=== PATIENT | male | born 1950 | race Caucasian/White ===

== ENCOUNTER 2020-10-28 06:44 | Outpatient (REF) | payer MEDICARE, SELFPAY ==
--- NOTE | ~2020-10-28 | CT_ITS ---
EXAMINATION: CT CHEST WITHOUT CONTRAST CLINICAL INFORMATION: Abnormal findings of lung field COMPARISON: CT chest from 01/30/2018 TECHNIQUE: Multidetector volumetric CT imaging of the chest was done. Axial MIP volume rendering provided. Sagittal and coronal reformatted images were obtained. This CT examination was performed using dose optimization techniques as appropriate, variously including the following: *Automated exposure control *Adjustment of mA and/or kV according to patient size (this includes techniques or standardized protocols for targeted exams where dose is matched to indication/reason for exam; i.e. extremities or head) *Use of iterative reconstruction technique DLP: 244.3 mGy-cm FINDINGS: LUNGS/PLEURA: Redemonstration of innumerable calcified and noncalcified bilateral pulmonary nodules are relatively stable in size and distribution. No new suspicious large pulmonary nodule is identified. Mild bibasilar atelectasis. Central airways are patent. No pneumothorax. No pleural effusion. MEDIASTINUM: The heart is not enlarged. No pericardial effusion. Aorta is nonaneurysmal and demonstrates mild atherosclerotic calcifications. The main pulmonary artery is not enlarged. Redemonstration of mildly prominent though nonenlarged mediastinal lymph nodes the largest appearing in the right paratracheal region measuring up to 1.3 cm. AXILLA: No lymphadenopathy. UPPER ABDOMEN: Unremarkable. OSSEOUS STRUCTURES: Degenerative changes of the thoracolumbar spine with anterior bridging osteophytes. No large lytic or blastic lesions are noted. CT/CT chest wo con IMPRESSION: 1. Redemonstration of innumerable calcified and noncalcified bilateral pulmonary nodules relatively stable in size and distribution. 2. No new suspicious large pulmonary nodule is identified. 3. Redemonstration of mildly prominent though nonenlarged mediastinal lymph nodes the largest appearing in the right paratracheal region measuring up to 1.3 cm.
[2020-10-28 11:49] LABS: Appearance Urine CLEAR; Color Urine YELLOW; Glucose Urine UA NEG (NEG); Leukocyte Esterase Urine NEG (NEG); Nitrite Urine NEG (NEG); Specific Gravity - Urine 1.025 (1.005-1.025); Urine Blood NEG (NEG); Urine Ketones 5 MG/DL (NEG); Urine Protein NEG (NEG-TRACE)
[2020-10-28 12:11] LABS: TSH reflex Free T4 1.04 uIU/mL (0.32-4.0)
[2020-10-28 12:30] LABS: Alanine Aminotransferase 30 U/L (0-40); Albumin Level 4.1 g/dL (3.5-5.0); Alkaline Phosphatase 83 U/L (39-117); Anion Gap 15 (12-20); Aspartate Amino Transferase 21 U/L (5-37); Bilirubin Total 0.6 mg/dL (0.0-1.0); Blood Urea Nitrogen 18 mg/dL (9-16); Calcium 8.8 mg/dL (8.4-10.2); Carbon Dioxide 21 mmol/L (22-29); Chloride 107 mmol/L (96-108); Cholesterol 169 mg/dL; Estimated Glomerular Filt Rate > 60; Glucose Fasting 120 mg/dL (60-99); HDL Cholesterol 38 mg/dL; LDL Cholesterol Calculated 82 mg/dl; Potassium 4.3 mmol/L (3.3-5.1); Sodium 139 mmol/L (135-145); Total Protein 6.8 g/dL (6.5-8.0); Triglycerides 246 mg/dL
[2020-10-28 13:03] LABS: Prostate Specific Antigen Scr 2.19 ng/mL (<0.05-4.0)
== END 2020-10-28 06:45 | disposition home or self-care (01) ==
LOC: HO.CT 06:44
PROVIDERS: PCP Nurse Practitioner Family; Visit Provider Nurse Practitioner Family
DX: Z00.00 Encounter for general adult medical examination without abnormal findings (principal); Z12.5 Encounter for screening for malignant neoplasm of prostate; R91.8 Other nonspecific abnormal finding of lung field
CPT/HCPCS: 36415; 71250; 80053; 80061; 81003; 84153; 84443

== ENCOUNTER 2021-04-08 06:31 | Outpatient (REF) | payer MEDICARE, SELFPAY ==
[2021-04-08 11:28] LABS: Alanine Aminotransferase 29 U/L (0-40); Alkaline Phosphatase 74 U/L (39-117); Anion Gap 15 (12-20); Aspartate Amino Transferase 23 U/L (5-37); Bilirubin Total 0.8 mg/dL (0.0-1.0); Blood Urea Nitrogen 22 mg/dL (9-16); Calcium 9.2 mg/dL (8.4-10.2); Carbon Dioxide 25 mmol/L (22-29); Chloride 106 mmol/L (96-108); Cholesterol 165 mg/dL; Estimated Glomerular Filt Rate > 60; Glucose Fasting 124 mg/dL (60-99); HDL Cholesterol 41 mg/dL; LDL Cholesterol Calculated 102 mg/dl; Potassium 4.6 mmol/L (3.3-5.1); Sodium 141 mmol/L (135-145); Total Protein 6.7 g/dL (6.5-8.0); Triglycerides 114 mg/dL
[2021-04-08 11:31] LABS: Appearance Urine CLEAR; Color Urine YELLOW; Glucose Urine UA NEG (NEG); Leukocyte Esterase Urine NEG (NEG); Nitrite Urine NEG (NEG); Urine Blood NEG (NEG); Urine Ketones NEG (NEG); Urine Protein NEG (NEG-TRACE)
[2021-04-08 11:52] LABS: TSH reflex Free T4 0.75 uIU/mL (0.32-4.0)
== END 2021-04-08 06:32 | disposition home or self-care (01) ==
LOC: HO.HMGCLDS 06:31
PROVIDERS: PCP Nurse Practitioner Family; Visit Provider Nurse Practitioner Family
DX: I10 Essential (primary) hypertension (principal)
CPT/HCPCS: 36415; 80053; 80061; 81003; 84443

== ENCOUNTER 2021-04-21 08:20 | Outpatient (REF) | payer MEDICARE, SELFPAY ==
[2021-04-21 12:32] LABS: Alanine Aminotransferase 27 U/L (0-40); Albumin Level 4.2 g/dL (3.5-5.0); Alkaline Phosphatase 78 U/L (39-117); Anion Gap 14 (12-20); Aspartate Amino Transferase 21 U/L (5-37); Bilirubin Total 0.6 mg/dL (0.0-1.0); Blood Urea Nitrogen 14 mg/dL (9-16); Calcium 9.1 mg/dL (8.4-10.2); Carbon Dioxide 26 mmol/L (22-29); Chloride 106 mmol/L (96-108); Estimated Glomerular Filt Rate > 60; Glucose Random 121 mg/dL (60-115); Potassium 4.6 mmol/L (3.3-5.1); Sodium 141 mmol/L (135-145)
[2021-04-21 12:37] LABS: Estimated Average Glucose 108 mg/dL; Hemoglobin A1c % 5.4 %
== END 2021-04-21 08:21 | disposition home or self-care (01) ==
LOC: HO.HMGCLDS 08:20
PROVIDERS: Visit Provider Nurse Practitioner Family
DX: R73.01 Impaired fasting glucose (principal)
CPT/HCPCS: 36415; 80053; 83036

== ENCOUNTER → 2021-07-19 14:19 | Outpatient (BNVA) | payer MEDICARE, SELFPAY | PROVIDERS: PCP Nurse Practitioner Family; Visit Provider Urology | DX: R97.20 Elevated prostate specific antigen [PSA] (principal); N40.1 Benign prostatic hyperplasia with lower urinary tract symptoms; N13.8 Other obstructive and reflux uropathy | CPT/HCPCS: 99202 ==

== ENCOUNTER → 2021-12-19 09:41 | Outpatient (BNVA) | payer MEDICARE, SELFPAY | PROVIDERS: PCP Nurse Practitioner Family; Visit Provider Hospitalist | DX: D86.9 Sarcoidosis, unspecified (principal); R59.0 Localized enlarged lymph nodes; R91.8 Other nonspecific abnormal finding of lung field | CPT/HCPCS: 99202 ==

== ENCOUNTER 2022-01-02 07:52 | Outpatient (REF) | payer MEDICARE, SELFPAY ==
--- NOTE | ~2022-01-02 | CT_ITS ---
EXAMINATION: CT CHEST WITHOUT CONTRAST CLINICAL INFORMATION: Abnormal lung findings. COMPARISON: CT chest 10/28/2020 and 01/30/2018 TECHNIQUE: Multidetector volumetric CT imaging of the chest was done. Axial MIP volume rendering provided. Sagittal and coronal reformatted images were obtained. This CT examination was performed using dose optimization techniques as appropriate, variously including the following: *Automated exposure control *Adjustment of mA and/or kV according to patient size (this includes techniques or standardized protocols for targeted exams where dose is matched to indication/reason for exam; i.e. extremities or head) *Use of iterative reconstruction technique DLP: 249 mGy-cm FINDINGS: WAGE AND SALARY ADMINISTRATOR: Unremarkable radiator core tester. LUNGS: The lungs are well-expanded and clear. Again visualized are multiple calcified and noncalcified pulmonary nodules. No acute pneumonic consolidation, mass seen. MEDIASTINUM: The thyroid lobes are symmetric and normal. The central trachea and the bronchi are widely patent. The heart size and the great vessels are normal caliber. There are numerous small shotty lymph nodes in the mediastinum. The largest lymph node measures 9 mm pretracheal space on axial image 15/3. CORONARY ARTERY CALCIFICATION: Minimal coronary artery calcification seen. PLEURA: There is no pleural effusion. No pleural mass or thickening. AXILLA: Unremarkable axilla. UPPER ABDOMEN: Visualized liver is diffusely attenuated without any focal lesion. Spleen, pancreas and bilateral adrenal glands and the gallbladder appear unremarkable. OSSEOUS STRUCTURES: Diffuse sclerotic densities are seen in the left ribs which appear stable to last exam. Mild ventral spondylosis seen throughout dorsal spine. CT/CT chest wo IV con IMPRESSION: 1. Multiple calcified and noncalcified pulmonary nodules are stable. No new nodules seen. No new suspicious nodules seen. 2. Slightly prominent numerous mediastinal lymph nodes are stable. Fleischner guidelines were followed.
== END 2022-01-02 07:53 | disposition home or self-care (01) ==
LOC: HO.CT 07:52
PROVIDERS: PCP Nurse Practitioner Family; Visit Provider Hospitalist
DX: R91.8 Other nonspecific abnormal finding of lung field (principal)
CPT/HCPCS: 71250

== ENCOUNTER 2022-01-16 07:50 | Outpatient (REF) | payer MEDICARE, SELFPAY ==
--- NOTE | 2022-01-16 14:47 | PFT_ITS ---
Forced vital capacity 91%, FEV1 92%. LHG19-36 is 88% and MVV 102%. Post bronchodilator therapy there is only slight improvement in AGQ54-41. Total lung capacity 87% and residual volume 82%. Diffusion capacity 72% CONCLUSION: Normal pulmonary function test. No evidence of obstructive or restrictive pulmonary disorder. Clinical correlation is recommended. MD CADY Nelson/SIN / [id number]
== END 2022-01-16 07:51 | disposition home or self-care (01) ==
LOC: HO.RESP 07:50
PROVIDERS: PCP Nurse Practitioner Family; Visit Provider Hospitalist
DX: R91.8 Other nonspecific abnormal finding of lung field (principal)
CPT/HCPCS: 94060; 94727; 94729

== ENCOUNTER 2022-01-22 06:57 | Outpatient (REF) | payer MEDICARE, SELFPAY ==
[2022-01-22 07:08] LABS: MANUAL DIFF FLAG NO
[2022-01-22 07:43] LABS: Basophils Percent Auto 0.7 % (0-2); Eosinophils Absolute Auto 0.4 X10*3/uL (0.0-0.4); Eosinophils Percent Auto 6.1 % (0-4); Hematocrit 44.5 % (42.0-52.0); Hemoglobin 15.3 g/dl (14.0-18.0); Imm Gran Abs Auto 0.01 X10*3/uL (0.00-0.03); Imm Gran Pct Auto 0.2 % (0.0-0.4); Lymphocytes Absolute Auto 2.2 X10*3/uL (1.2-4.9); Lymphocytes Percent Auto 36.6 % (20-40); Mean Corpuscular HGB Conc 34.4 g/dl (31.0-36.0); Mean Corpuscular Hemoglobin 31.1 pg (27.0-33.0); Mean Corpuscular Volume 90.4 fL (80.0-98.0); Mean Platelet Volume 10.4 fL (9.4-12.4); Monocytes Absolute Auto 0.6 X10*3/uL (0.1-1.2); Monocytes Percent Auto 10.3 % (2-11); Neutrophils Absolute Auto 2.8 x10*3/uL (2.0-8.3); Neutrophils Percent Auto 46.1 % (45-73); Platelet Count 185 X10*3/uL (160-400); Red Blood Count 4.92 X10*6/uL (4.60-5.80); Red Cell Distribution Width 12.6 % (11.0-16.0); White Blood Count 6.1 X10*3/uL (4.8-10.8)
[2022-01-22 08:38] LABS: Alanine Aminotransferase 30 U/L (0-40); Albumin Level 4.2 g/dL (3.5-5.0); Alkaline Phosphatase 76 U/L (39-117); Anion Gap 13 (12-20); Aspartate Amino Transferase 22 U/L (5-37); Bilirubin Direct 0.2 mg/dL (0.0-0.5); Bilirubin Total 0.5 mg/dL (0.0-1.0); Blood Urea Nitrogen 14 mg/dL (9-16); Carbon Dioxide 26 mmol/L (22-29); Chloride 105 mmol/L (96-108); Estimated Glomerular Filt Rate > 60; Glucose Random 115 mg/dL (60-115); PSA,Total (Free>4and<10) 0.67 ng/mL (0.00-4.00); Potassium 4.5 mmol/L (3.3-5.1); Sodium 139 mmol/L (135-145); Total Protein 6.9 g/dL (6.5-8.0)
[2022-01-22 09:02] LABS: Erythrocyte Sedimentation Rate 2 MM/HR (0-15)
[2022-01-28 18:43] LABS: Angiotensin Converting Enzyme 67.6 U/L (9-67)
== END 2022-01-22 06:58 | disposition home or self-care (01) ==
LOC: HO.LAB 06:57
PROVIDERS: Hospitalist; Urology; PCP Nurse Practitioner Family; Visit Provider Nurse Practitioner Family
DX: Z12.5 Encounter for screening for malignant neoplasm of prostate (principal); N13.8 Other obstructive and reflux uropathy; N40.1 Benign prostatic hyperplasia with lower urinary tract symptoms; R59.0 Localized enlarged lymph nodes; D86.9 Sarcoidosis, unspecified
CPT/HCPCS: 36415; 80048; 80076; 82164; 84153; 85025; 85652

== ENCOUNTER → 2022-01-24 08:18 | Outpatient (BNVA) | payer MEDICARE, SELFPAY | PROVIDERS: PCP Nurse Practitioner Family; Visit Provider Urology | DX: R97.20 Elevated prostate specific antigen [PSA] (principal) | CPT/HCPCS: 99212 ==

== ENCOUNTER → 2022-02-21 09:14 | Outpatient (BNVA) | payer MEDICARE, SELFPAY | PROVIDERS: PCP Nurse Practitioner Family; Visit Provider Hospitalist | DX: R91.8 Other nonspecific abnormal finding of lung field (principal); D86.9 Sarcoidosis, unspecified; R59.0 Localized enlarged lymph nodes | CPT/HCPCS: 99212 ==

== ENCOUNTER 2022-04-13 07:11 | Outpatient (REF) | payer MEDICARE, SELFPAY ==
[2022-04-13 11:26] LABS: MANUAL DIFF FLAG NO
[2022-04-13 11:38] LABS: Basophils Percent Auto 0.6 % (0-2); Eosinophils Absolute Auto 0.3 X10*3/uL (0.0-0.4); Eosinophils Percent Auto 5.3 % (0-4); Hematocrit 44.8 % (42.0-52.0); Hemoglobin 15.6 g/dl (14.0-18.0); Imm Gran Abs Auto 0.01 X10*3/uL (0.00-0.03); Imm Gran Pct Auto 0.2 % (0.0-0.4); Lymphocytes Absolute Auto 1.9 X10*3/uL (1.2-4.9); Lymphocytes Percent Auto 38.3 % (20-40); Mean Corpuscular HGB Conc 34.8 g/dl (31.0-36.0); Mean Corpuscular Volume 89.1 fL (80.0-98.0); Mean Platelet Volume 10.4 fL (9.4-12.4); Monocytes Absolute Auto 0.5 X10*3/uL (0.1-1.2); Monocytes Percent Auto 9.4 % (2-11); Neutrophils Absolute Auto 2.3 x10*3/uL (2.0-8.3); Neutrophils Percent Auto 46.2 % (45-73); Platelet Count 187 X10*3/uL (160-400); Red Blood Count 5.03 X10*6/uL (4.60-5.80); Red Cell Distribution Width 12.2 % (11.0-16.0); White Blood Count 4.9 X10*3/uL (4.8-10.8)
[2022-04-13 11:49] LABS: Appearance Urine Turbid; Color Urine Yellow; Glucose Urine UA Negative (Negative); Leukocyte Esterase Urine Negative (Negative); Nitrite Urine Negative (Negative); PH 5.5 (5.0-9.0); Specific Gravity - Urine 1.025 (1.005-1.025); Urine Blood Negative (Negative); Urine Ketones Trace mg/dL (Negative); Urine Protein Negative (Neg-Trace)
[2022-04-13 11:55] LABS: Alanine Aminotransferase 74 U/L (0-40); Alkaline Phosphatase 78 U/L (39-117); Anion Gap 15 (12-20); Aspartate Amino Transferase 48 U/L (5-37); Bilirubin Total 0.5 mg/dL (0.0-1.0); Blood Urea Nitrogen 14 mg/dL (9-16); Calcium 8.3 mg/dL (8.4-10.2); Carbon Dioxide 22 mmol/L (22-29); Chloride 108 mmol/L (96-108); Cholesterol 125 mg/dL; Estimated Glomerular Filt Rate > 60; Glucose Fasting 112 mg/dL (60-99); HDL Cholesterol 25 mg/dL; LDL Cholesterol Calculated 48 mg/dl; Sodium 141 mmol/L (135-145); Total Protein 6.5 g/dL (6.5-8.0); Triglycerides 261 mg/dL
[2022-04-13 12:10] LABS: TSH reflex Free T4 1.47 uIU/mL (0.32-4.0)
== END 2022-04-13 07:12 | disposition home or self-care (01) ==
LOC: HO.HMGCLDS 07:11
PROVIDERS: PCP Nurse Practitioner Family; Visit Provider Nurse Practitioner Family
DX: I10 Essential (primary) hypertension (principal)
CPT/HCPCS: 36415; 80053; 80061; 81003; 84443; 85025

== ENCOUNTER 2022-04-19 08:09 | Outpatient (REF) | payer MEDICARE, SELFPAY ==
--- NOTE | ~2022-04-19 | US_ITS ---
EXAMINATION: US ABDOMEN COMPLETE CLINICAL INFORMATION: Abnormal levels of other serum enzymes. COMPARISON: None TECHNIQUE: Real-time imaging of the abdominal viscera. Technically limited study secondary to body habitus. FINDINGS: PANCREAS: Normal. ABDOMINAL AORTA: The proximal, mid, and distal segments are normal in caliber. INFERIOR VENA CAVA: Visualized portions are normal. LIVER: The liver is normal in size. The liver contour is normal. There is diffuse increased liver parenchymal echogenicity, consistent with hepatic steatosis. No focal hepatic lesion. There is no intrahepatic biliary duct dilatation seen. GALLBLADDER: Normal. The gallbladder is physiologically distended without evidence of stones, sludge, polyps, wall thickening or pericholecystic fluid. COMMON BILE DUCT: Normal in caliber measuring 0.3 cm in diameter. RIGHT KIDNEY: Benign-appearing 1.1 cm cyst. Followup imaging is not routinely recommended for benign appearing cysts. No hydronephrosis or renal calculi. The kidney measures 12.6 cm in maximum dimension. LEFT KIDNEY: Normal. No hydronephrosis. No renal calculi or focal parenchymal lesions. The kidney measures 13.2 cm in maximum dimension. SPLEEN: Normal. The spleen measures 11.1 cm in maximum dimension. FREE FLUID: None. US/US abdomen complete IMPRESSION: Hepatic steatosis.
== END 2022-04-19 08:10 | disposition home or self-care (01) ==
LOC: HO.US 08:09
PROVIDERS: PCP Nurse Practitioner Family; Visit Provider Nurse Practitioner Family
DX: R74.8 Abnormal levels of other serum enzymes (principal); R74.01 Elevation of levels of liver transaminase levels
CPT/HCPCS: 76700

== ENCOUNTER 2022-07-19 06:57 | Outpatient (REF) | payer MEDICARE, SELFPAY ==
[2022-07-20 08:14] LABS: HBS Num1 0.35 mIU/mL (0-7.99); HBc Num1 0.11 S/CO (0.00-0.79); HBsAGNum1 0.34 S/CO (0.00-0.99); Hepatitis A Antibody IgM 0.17 Index (0-0.79); Hepatitis B Core Antibody Nonreactive (Nonreactive); Hepatitis B Surface Antigen Negative (Negative); ~HepC Num1 0.09 S/CO (0.00-0.79); ~Hepatitis A Antibody IgM Nonreactive (Nonreactive); ~Hepatitis B Surface Antibody NONREACTIVE (Nonreactive); ~Hepatitis C Antibody Nonreactive (Nonreactive)
== END 2022-07-19 06:58 | disposition home or self-care (01) ==
LOC: HO.HMGCLDS 06:57
PROVIDERS: PCP Nurse Practitioner Family; Visit Provider Nurse Practitioner Family
DX: R74.8 Abnormal levels of other serum enzymes (principal)
CPT/HCPCS: 36415; 86704; 86706; 86709; 86803; 87340

== ENCOUNTER 2022-08-17 07:24 | Outpatient (REF) | payer MEDICARE, SELFPAY ==
[2022-08-17 11:33] LABS: Appearance Urine Clear; Color Urine Yellow; Glucose Urine UA Negative (Negative); Leukocyte Esterase Urine Negative (Negative); Nitrite Urine Negative (Negative); PH 5.5 (5.0-9.0); Urine Blood Negative (Negative); Urine Ketones Trace mg/dL (Negative); Urine Protein Negative (Neg-Trace)
[2022-08-17 12:40] LABS: Alanine Aminotransferase 24 U/L (0-40); Albumin Level 4.1 g/dL (3.5-5.0); Alkaline Phosphatase 79 U/L (39-117); Anion Gap 13 (12-20); Aspartate Amino Transferase 22 U/L (5-37); Bilirubin Total 0.5 mg/dL (0.0-1.0); Blood Urea Nitrogen 19 mg/dL (9-16); Calcium 9.1 mg/dL (8.4-10.2); Carbon Dioxide 24 mmol/L (22-29); Chloride 108 mmol/L (96-108); Cholesterol 149 mg/dL; Estimated Glomerular Filt Rate > 60; Glucose Fasting 112 mg/dL (60-99); HDL Cholesterol 36 mg/dL; LDL Cholesterol Calculated 79 mg/dl; Potassium 4.3 mmol/L (3.3-5.1); Sodium 141 mmol/L (135-145); Total Protein 7.1 g/dL (6.5-8.0); Triglycerides 170 mg/dL
[2022-08-17 12:45] LABS: TSH reflex Free T4 0.12 uIU/mL (0.32-4.0)
[2022-08-17 13:16] LABS: Free T4 (Free Thyroxine) 1.31 ng/dL (0.71-1.85)
== END 2022-08-17 07:25 | disposition home or self-care (01) ==
LOC: HO.HMGCLDS 07:24
PROVIDERS: PCP Nurse Practitioner Family; Visit Provider Nurse Practitioner Family
DX: I10 Essential (primary) hypertension (principal)
CPT/HCPCS: 36415; 80053; 80061; 81003; 84439; 84443; 85025

== ENCOUNTER 2022-08-29 09:07 | Outpatient (AMB) | payer MEDICARE, SELFPAY ==
--- NOTE | 2022-08-29 09:26 | A.OFFVIS_ITS ---
Intake Vital Signs 08/29/22 09:27 Height 6 ft 1 in Weight 236 lb BMI 31.1 BP 130/70 Blood Pressure Location Lt brachial Position Standing Pulse 64 Pulse Source Pulse Oximeter Pulse Oximetry (%) 97 Oxygen Delivery Method Room Air Intake Visit Reasons: Pulmonary Nodules Intake Note: pt is here for follow up and states he is feeling good. Allergies No Known Allergies [No Known Allergies*] Allergy (Verified 08/29/22 09:30) HPI HPI Comments History of Present Illness Details The patient is a 72-year-old gentleman with a known history of pulmonary nodules. Back in 2017 the patient was noted to have the pulmonary nodules in addition to lymphadenopathy. He did undergo a bronchoscopy demonstrating just reactive inflammatory changes. Subsequently in 2018 underwent a mediastinoscopy biopsy of the 4R lymph node. This demonstrated granulomas which were non necrotizing. fungal and AFB stains were negative. And also the cultures from previous bronchoscopy were negative for any infectious processes. This brings up the possibility of sarcoidosis. The patient subsequently had a repeat CT scan of the chest in October 2020 demonstrating multiple pulmonary nodules in addition to persistent adenopathy. From a respiratory status the patient continues to have some degree of cough. He also has shortness of breath with activity at times. He does not having any others. Patient denies any rashes denies any eye or visual changes. At this point does not appear to have any extra pulmonary manifestations of sarcoidosis. In regards of his obstructive sleep apnea the patient has been on CPAP for many years. 02/21/2022 the patient is here for a pulmonary follow-up visit. Overall the patient is doing well. He does describe episodes of coughing and chest tight ness. Typically between 3 to 4 times a week. He is not using any inhalers at this time. We did review his pulmonary function studies which demonstrated just an isolated diffusion impairment. This was mild. Possibly some small airways disease but not significant. The patient also had blood work demonstrating some elevations in his eosinophils suggesting potential allergies. He also had a sli ght elevation of the Jose Cruz level suggesting sarcoid activity. The rest of the blood work was benign therefore no liver or kidney involvement. His calcium levels are within normal limits. He recently had his eyes checked and no mention of sarcoid was noted. The patient overall is doing well. He did have a repeat CT scan of the chest that was personally by me. It appears that the nodules and the lymphadenopathy is stable at this time. Will go ahead and start him on inhaled cortical steroid/albuterol inhaler that he can use initially as needed during his episodes. If he sees that he is using it often and he sees that he is getting good response to the therapy then he can start using it on a daily basis in the morning. He should also rinse his mouth after using it. Will follow-up in 6 months but will follow-up with a repeat CT scan in a year's time. 08/29/2022 the patient is here for pulmonary follow-up visit. Overall patient very well. He lost about 20 lb with weight management. He also stopped using Symbicort daily since he has been doing better. He can always use it as needed. The patient did have a pulmonary function study back in January 2022 which we reviewed again demonstrating on no with definitive obstructive ventilatory defects although some slight small airways disease. The patient also had a mild diffusion impairment. His last CT scan was back in December 2021 that was compared to a previous CT scan from 2018. His pulmonary nodules appear to be stable although slightly increased prominence in the lymphadenopathy. Will plan to repeat the CT scan in a year's time since he is doing so well. If he develops any worsening symptoms prior to that will any other concerning issues she can always call so we can reassess earlier. [facility] Medical History Sarcoidosis Family History Father Mental health disorder Social History Housing: House Patient Tobacco Use Status: Never used Tobacco e-Cigarette/Vaping Use: Never Used Second Hand Smoke Exposure: No service: No Current occupational status: employed Current occupation: [employer] Current occupational exposures/hazards: No Cognitive needs: No Hearing needs: No Vision needs: No Review of Systems Const Denies fatigue, Denies fever(s) and Denies night sweats Eyes Denies change in vision and Denies itchy eyes ENT Denies change in voice Card Denies chest pain and Denies dyspnea on exertion Resp Reports cough and Denies dyspnea on exertion GI Reports no additional complaints Musc Reports arthralgias Skin/Breast Denies rash Neuro Reports no additional complaints Endo Denies fatigue and Denies flushing Sheldon/Lymph Denies easy bleeding and Denies easy bruising Aller/Immun Denies itchy eyes Physical Exam Vital Signs: Last Vital Signs Pulse 64 08/29/22 09:27 BP 130/70 08/29/22 09:27 Pulse Ox 97 08/29/22 09:27 Oxygen Delivery Method Room Air 08/29/22 09:27 BMI result Body Mass Index 31.1 Const General: cooperative, healthy appearing, comfortable and no acute distress Orientation/consciousness: patient oriented x3 HEENT Head: Yes normal to inspection Face and sinus: Yes normal facial exam Mouth: moist mucous membranes Neck Neck: Yes normal visual inspection, Yes full ROM and Yes trachea midline Chest Chest palpation & inspection: normal inspection of the chest Resp Effort & Inspection: normal respiratory effort and able to speak in complete sentences Auscultation: clear to auscultation bilaterally Cardio Rate: regular rate Rhythm: regular rhythm Heart sounds: S1 normal heart sound present and S2 normal heart sound present GI Palpation (GI): Soft to palpation Auscultation: normal bowel sounds Skin General skin exam: no rashes or lesions noted Neuro General: patient oriented x3, gait normal, tone normal and moves all extremities Extrem General: Yes no clubbing, cyanosis or edema Assessment & Plan Assessment & Plan (1) Sarcoidosis: Code(s): D86.9 - Sarcoidosis, unspecified (2) Mediastinal lymphadenopathy: Code(s): R59.0 - Localized enlarged lymph nodes (3) Pulmonary nodules: Code(s): R91.8 - Other nonspecific abnormal finding of lung field Plan Repeat CT chest in 1 year continue Symbicort as needed F/U 1 months Coding Level of Care Code Est Pt Level 4 (41507) Diagnoses Sarcoidosis D86.9 Mediastinal lymphadenopathy R59.0 Pulmonary nodules R91.8 Time Spent (min) 18
[2022-08-29 09:27] VITALS: BP 130/70; PULSE 64; O2SAT 97; BMI 31.1
== END 2022-08-29 09:42 | disposition home or self-care (01) ==
PROVIDERS: PCP Nurse Practitioner Family; Visit Provider Hospitalist
DX: D86.9 Sarcoidosis, unspecified (principal); R59.0 Localized enlarged lymph nodes; R91.8 Other nonspecific abnormal finding of lung field
CPT/HCPCS: 99214

== ENCOUNTER → 2022-08-29 09:07 | Outpatient (BNVA) | payer MEDICARE, SELFPAY | PROVIDERS: Visit Provider Hospitalist | DX: R91.8 Other nonspecific abnormal finding of lung field (principal); D86.9 Sarcoidosis, unspecified; R59.0 Localized enlarged lymph nodes | CPT/HCPCS: 99212 ==

== ENCOUNTER → 2022-09-04 08:33 | Outpatient (REF) | payer MEDICARE, SELFPAY ==
--- NOTE | ~2022-09-04 | NM_ITS ---
EXERCISE MYOCARDIAL PERFUSION STUDY INDICATION: Chest pain, assess for coronary disease ischemia TECHNIQUE: The patient was brought in for an exercise perfusion study on 09/04/2022. Patient performed exercise as per Rtemayne protocol and was injected 35 mCi of sestamibi once target heart rate was achieved. Images were obtained using the SPECT gamma camera interlaced with the gating device. Images were obtained in supine position. Resting perfusion study was performed on 09/05/2022. Patient was administered 35 mCi of sestamibi intravenously at rest. Images were then obtained in supine position. Images were processed with the software and compared side to side in short axis, horizontal long axis and vertical long axis views. Total DLP 93mGy-cm. FINDINGS: Raw images were reviewed. The stress perfusion study showed diminished tracer uptake along the basal to mid inferior wall. There is significant improvement with CT attenuation correction suggestive of diaphragmatic attenuation artifact. The gated study shows normal LV systolic function with calculated LVEF of 65%. LV cavity is normal in size. The gated study shows normal wall thickening and contraction of segments. Resting study shows diminished tracer uptake along the inferior wall. There is improvement with CT attenuation correction suggestive of diaphragmatic attenuation artifact. Gating at rest reveals normal wall motion with ejection fraction at 58%. The findings are consistent with fixed inferior defect suspected to be from diaphragmatic attenuation artifact. NM/NM cardiolite stress test IMPRESSION: 1. Myocardial perfusion imaging study shows likely normal myocardial perfusion. 2. Gated LVEF is 68% during stress and 58% during rest. 3. Transient ischemic dilatation not present. EKG component of the test reported separately.
--- NOTE | 2022-09-04 08:36 | CA_ITS ---
Acquisition Time: 2022-09-04 08:39:42 Total Exercise Time: 00:05:37 Test Indications: CP. FM HX OF ISCHEMIC HEART DIS Medications: Protocol: LULA Max HR: 150 BPM 100% of Pred: 150 BPM Max BP: 166/084 mmHG Max Work Load: 7.0 METS Exercise stress test exercise 5 min 37 sec of Lula protocol achieivng 100% MPHR, with mild SOB, no chest discomfort, with isolated PVCs, with normotensive response to exercise, with out EKG changes, Nuclear images pending. test reviewed with Dr. Saravia Referred By: Amadou Garrido Overread By: ALLYSON VARGAS
== END ==
LOC: HO.CARD 08:33
PROVIDERS: PCP Nurse Practitioner Family; Visit Provider Nurse Practitioner Family
DX: R07.89 Other chest pain (principal); Z82.49 Family history of ischemic heart disease and other diseases of the circulatory system
CPT/HCPCS: 78452; 93017; A9500

== ENCOUNTER → 2022-09-04 08:59 | Outpatient (BNV) | payer MEDICARE, SELFPAY | PROVIDERS: PCP Nurse Practitioner Family; Visit Provider Internal Medicine | DX: R06.02 Shortness of breath (principal) | CPT/HCPCS: 78452; 93016; 93018 ==

== ENCOUNTER → 2022-09-18 07:52 | Outpatient (REF) | payer MEDICARE, SELFPAY ==
--- NOTE | 2022-09-18 07:56 | CA_ITS ---
Transthoracic Echocardiogram Patient (Last, First, Middle): Frandy Chambers, Gender: Male Date of : 1950 Age: 72 Procedure Date: 09/18/2022 Procedure Type: Transthoracic Echocardiogram Location: OP Height: 185.42 cm Weight: 106.6 kg BSA: 2.30 m2 Heart Rate: bpm BP: 138 / 76 mmHg Cabin Agent: MAMIE Referring MD: Amadou Garrido [facility] Symptoms: R07.89 - Other chest pain Study Quality: Adequate ECG Rhythm: Sinus Conclusions: - The left ventricular systolic function is low normal. The calculated ejection fraction is 53% by biplane method. - There is mild calcification of the aortic valve. - There is mild mitral valve regurgitation. - There is mild tricuspid valve regurgitation. Findings Left Ventricle Normal left ventricular cavity size. There is normal left ventricular wall thickness. The left ventricular systolic function is low normal. The calculated ejection fraction is 53% by biplane method. There is no evidence of regional wall motion abnormalities. Diastolic function is normal for age. LV peak GLS -18.1%. Right Ventricle Mildly increased right ventricular cavity size. There is normal right ventricular systolic function. Atria The left atrium is mildly dilated. The right atrium is normal in size. Aortic Valve There is a normal trileaflet aortic valve. There is mild calcification of the aortic valve. There is no aortic valve stenosis. There is no aortic valve regurgitation. Mitral Valve The mitral valve appears normal. There is mild mitral valve regurgitation. There is no mitral valve stenosis. Pulmonic Valve The pulmonic valve is likely normal. Tricuspid Valve Normal tricuspid valve structure. There is mild tricuspid valve regurgitation. There is no evidence of pulmonary hypertension. Great Vessels The asc aorta is normal in size. Venous The inferior vena cava is normal in size and collapses greater than 50% with inspiration. Pericardium/Pleural There is no evidence of pericardial effusion. Prior Study Comparison No prior study available for comparison. Measurements 2D Linear Measurements IVSd: 0.99 0.6-0.9/0.6-1.0 cm LVIDd: 5.14 3.9-5.3/4.2-5.9 cm LVIDd Index: 2.23 2.4-3.2/2.2-3.1 cm/m2 LVIDs: 3.73 2.0-3.6 cm LVPWd: 0.99 0.7-1.1 cm LA Diam: 4.20 2.7-3.8/3.0-4.0 cm LAIDs Index: 1.83 1.5-2.3 cm/m2 LV Mass: 234.00 67-162/88-224 g LV Mass Index: 101.74 43-95/49-115 g/m2 LVOT Diam: 2.00 3.0+(-)1.3 cm 2D Systolic Function EF 4C: 54.10 >55% EF 2C: 54.30 >55% EF BiP: 53.20 >55% Mitral Valve MV Pk E: 0.58 MV PK A: 0.57 MV Decel Time: 333.00 E/A: 1.00 E'Lateral: 9.25 E'Medial: 7.72 E/E' Med: 7.50 E/E' Lat: 6.20 PHT: 98.00 MVA PHT: 2.24 Decel [place]: 1.73 MR Vol - PW Dopp: 9.25 MR VTI: 1.85 MR ERO: 5.00 MR Alias Saul: 0.39 MR RAD: 0.30 Aortic Valve AoV Pk Saul: 1.39 AoV Mn Saul: 0.95 AoV VTI: 0.35 AoV Pk Grad: 8.00 Aov Mn Grad: 4.00 CHARLES Cont.VTI: 2.02 LVOT LVOT Pk Saul: 1.07 LVOT Mn Saul: 0.71 LVOT VTI: 0.23 LVOT Pk Grad: 5.00 LVOT Mn Grad: 2.00 LVOT Diam: 2.00 LVOT Area: 3.14 Diastolic Function MV Pk E: 0.58 MV Pk A: 0.57 E/A: 1.00 E'Medial: 7.72 E/E' Med: 7.50 E' Laterial: 9.25 E/E' Lat: 6.20 Right Ventricle TAPSE (mm): 23.50 TVS' Saul: 11.10 Tricuspid Valve TR Pk Saul: 2.73 TR Pk Grad: 30.00 RA Press: 3.00 RVSP: 33.00 Great Vessels Aorta Sinus of Valsalva: 3.35 2.0-3.[address] Ridge: 3.01 1.7-3.4 cm Ao Asc: 3.50 2.1-3.4 cm Updated in Other Vendor System with Status of Final Joseph Brizuela MD electronically signed on 09/18/2022 12:22:45 PM with status of Final
== END ==
LOC: HO.CARD 07:52
PROVIDERS: PCP Nurse Practitioner Family; Visit Provider Nurse Practitioner Family
DX: R07.89 Other chest pain (principal)
CPT/HCPCS: 93306; 93356

== ENCOUNTER → 2022-09-18 07:56 | Outpatient (BNV) | payer MEDICARE, SELFPAY | PROVIDERS: PCP Nurse Practitioner Family; Visit Provider Internal Medicine | DX: R07.89 Other chest pain (principal) | CPT/HCPCS: 93306 ==

== ENCOUNTER 2022-09-19 07:56 | Outpatient (AMB) | payer MEDICARE, SELFPAY ==
[2022-09-19 08:15] VITALS: BMI 31.0
--- NOTE | 2022-09-19 08:15 | MHC.OFFVIS ---
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 States he has contracture of his ring finger. States he noticed this about 6 months ago and seems to be worsening. States he is also having constant numbness or tingling mainly in his right hand. No EMG done. States no prior treatment. 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 He reports ~6 months of a worsening contracture of his right ring finger, and was told by his PCP that this is likely Dupuytrens. He says both of his brother's have had Dupuytrens conractures. He also complains of worsening numbness in his right hand. He says this is now constant and in the tips of his index and middle fingers. He denies any numbness in his thumb or small finger. He denies any prior treatment and has not done a NCS. He says this began after frequently using a rowing machine at home, but only in his right hand. 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 [facility] Medical History Sarcoidosis Family History Father Mental health disorder Social History (Updated 09/19/22 @ 08:18 by Priscilla Vargas [facility]) Housing: House Patient Tobacco Use Status: Never used Tobacco e-Cigarette/Vaping Use: Never Used Second Hand Smoke Exposure: No service: No Current occupational status: employed Current occupation: [employer] / rt hand Current occupational exposures/hazards: No Cognitive needs: No Hearing needs: No Vision needs: No Review of Systems Const All systems reviewed & are unremarkable except as noted in HPI and below Physical Exam Vital Signs: BMI result Body Mass Index 31.0 Const General: cooperative, healthy appearing and no acute distress Orientation/consciousness: patient oriented x3 HEENT Head: Yes normocephalic and Yes atraumatic Eyes EOM: EOMs intact bilaterally Resp Effort & Inspection: normal respiratory effort and able to speak in complete sentences Cardio Jugular venous distension: no JVD Skin General skin exam: turgor normal Rashes: no rashes Neuro General: patient oriented x3 Extrem Other: Evaluation of Right Upper Extremity: The patient is alert, oriented, and in no acute distress Neuro: Dense numbness in the index, middle, and radial half of the ring finger. Normal sensation in the thumb & small finger No thenar or intrinsic wasting Good APB muscle belly firing and good finger cross Vascular: Cap refill brisk ROM: He can bring his fingers closed to a fist, and his thumb, index, middle, and small fingers back into full extension Dupuytrens contracture of the ring finger of ~MCP 50/PIP 20 Dupuytrens cord extending from the palm to just past the ulnar side of the PIP joint Skin: No lacerations or abrasions. General: No Ecchymosis. No Erythema or evidence of infection. Psych Appearance: grossly normal Affect: normal affect Attitude: cooperative Assessment & Plan Assessment & Plan (1) Dupuytren's contracture of right hand: Code(s): M72.0 - Palmar fascial fibromatosis [Dupuytren] (2) Numbness and tingling in right hand: Code(s): R20.0 - Anesthesia of skin; R20.2 - Paresthesia of skin Plan Assessment & Plna: 1. Right Ring finger Dupuytrens contracture MCP 50/PIP 20 I educated him about this condition I discussed operative and non-operative treatment options I referred [facility] to the [facility] for more information 2. Right hand numbness In the median nerve distribution Dense numbness in the index, middle, and radial half of the ring finger I ordered a NCS to assess for peripheral neuropathy vs cervical radiculopathy He will follow up when completed for review We will see him back following his nerve conduction study. At that time we can also discuss possible operative intervention for his right ring finger Dupuytren's contracture. Scribed for Mercy Berman MD by Tanner Burt, medical superintendent, on 09/19/22 at 8:45 PM, EST. Orders: Orders NE nerve conduction velocity Today R20.0 - Anesthesia of skin, R20.2 - Paresthesia of skin Coding Level of Care Code New Pt Level 3 (89186) Diagnoses Dupuytren's contracture of right hand M72.0 Numbness and tingling in right hand R20.0; R20.2
== END 2022-09-19 08:58 | disposition home or self-care (01) ==
PROVIDERS: PCP Nurse Practitioner Family; Visit Provider Orthopaedic Surgery
DX: M72.0 Palmar fascial fibromatosis [Dupuytren] (principal); R20.0 Anesthesia of skin; R20.2 Paresthesia of skin
CPT/HCPCS: 99203

== ENCOUNTER → 2022-09-19 07:56 | Outpatient (BNVA) | payer MEDICARE, SELFPAY | PROVIDERS: PCP Nurse Practitioner Family; Visit Provider Orthopaedic Surgery | DX: M72.0 Palmar fascial fibromatosis [Dupuytren] (principal); R20.0 Anesthesia of skin; R20.2 Paresthesia of skin | CPT/HCPCS: 99202 ==

== ENCOUNTER 2022-09-27 12:24 | Outpatient (REF) | payer MEDICARE, SELFPAY ==
--- NOTE | 2022-09-27 12:26 | EMG_ITS ---
Please see EMG / Nerve Conduction Report. MTDD
--- NOTE | 2022-09-27 12:52 | HO.EMG-NCS ---
Physiatry - EMG/NCS EMG/NCS Chief complaint: History of Dupuytren's contracture in the right side, also with hand numbness Reason for referral: Evaluate for Carpal Tunnel Syndrome versus radiculopathy Referred by: Dr. Berman Procedure done: Right upper extremity NCS/EMG Precautions and/or limitations: None The limb temperature was monitored continuously and remained between 32-36 degrees C during the performance of the NCS. FINDINGS: Right median motor nerve showed prolonged distal latency, small amplitude and slow conduction velocity. Right ulnar motor nerve showed prolonged distal latency, small amplitude and mild slowing conduction velocity. Right median sensory nerve showed absent response. Right ulnar sensory nerve showed prolonged peak latency and small amplitude. All other nerves tested were within normal. Concentric needle EMG was performed in selected muscles of the right upper extremity and cervical paraspinals. Study did not reveal signs of electric abnormalities as shown in the table below. Nerve Conduction Studies Anti Sensory Summary Table ?Stim Site NR Onset (ms) Norm Onset (ms) Peak (ms) Norm Peak (ms) O-P Amp (?V) Norm O-P Amp Site1 Site2 Delta-0 (ms) Dist (cm) Saul (m/s) Norm Saul (m/s) Right Median Anti Sensory (2nd Digit) Wrist NR <3.6 >10 Wrist 2nd Digit 14.0 Right Radial Anti Sensory (Thumb) Forearm ? 0.4 0.7 <3.1 30.7 Forearm Thumb 0.4 0.0 Right Ulnar Anti Sensory (5th Digit) Wrist ? 3.9 4.4 <3.7 7.6 >15.0 Wrist 5th Digit 3.9 14.0 36 Motor Summary Table ?Stim Site NR Onset (ms) Norm Onset (ms) O-P Amp (mV) Norm O-P Amp iAmp (mV) Amp (1st) (%) Site1 Site2 Delta-0 (ms) Dist (cm) Saul (m/s) Norm Saul (m/s) Right Median Motor (Abd Poll Brev) Wrist ? 8.4 <3.9 2.9 >4.5 3.8 100.0 Elbow Wrist 7.0 24.0 34 >45 Elbow ? 15.4 0.5 0.6 17.2 Right Ulnar Motor (Abd Dig Minimi) Wrist ? 3.4 <3.0 3.4 >5 4.1 100.0 B Elbow Wrist 4.7 21.0 45 >45 B Elbow ? 8.1 2.0 2.4 58.8 A Elbow B Elbow 2.4 10.0 42 >45 A Elbow ? 10.5 1.9 2.4 55.9 EMG ?Side Muscle Nerve Root Ins Act Fibs Psw Amp Dur Poly Recrt Int Pat Comment Right 1stDorInt Ulnar C8-T1 Nml Nml Nml Nml Nml 0 Nml Complete Right FlexCarRad Median C6-7 Nml Nml Nml Nml Nml 0 Nml Complete Right Biceps Musculocut C5-6 Nml Nml Nml Nml Nml 0 Nml Complete Right Triceps Radial C6-7-8 Nml Nml Nml Nml Nml 0 Nml Complete Right Deltoid Axillary C5-6 Nml Nml Nml Nml Nml 0 Nml Complete Paraspinal EMG ?Side Muscle Nerve Root Ins Act Fibs Psw Comment Right Cervical Upper Rami Nml Nml Nml Right Cervical Mid Rami Nml Nml Nml Right Cervical Lower Rami Nml Nml Nml IMPRESSION: 1. This is an abnormal study. 2. There is electrodiagnostic evidence for right moderate-severe median neuropathy at the wrist, consistent with Carpal Tunnel Syndrome 3. There is electrodiagnostic evidence for right ulnar neuropathy at the elbow. 4. There is no electrodiagnostic evidence for brachial plexopathy or cervical radiculopathy. Thank you for your kind referral. Delilah Go MD, IRINEO Board Certified, [place] Board [employer] and Rehabilitation (ABPMR) Board Certified, [place] Board of Electrodiagnostic Medicine (ABEM)
== END 2022-09-27 12:25 | disposition home or self-care (01) ==
LOC: HO.NEURO 12:24
PROVIDERS: PCP Nurse Practitioner Family; Visit Provider Orthopaedic Surgery
DX: R20.0 Anesthesia of skin (principal); R20.2 Paresthesia of skin
CPT/HCPCS: 95860; 95886; 95907; 95909

== ENCOUNTER → 2022-09-27 12:24 | Outpatient (BNV) | payer MEDICARE, SELFPAY | PROVIDERS: PCP Nurse Practitioner Family; Visit Provider Physical Medicine & Rehabilitation | DX: M54.17 Radiculopathy, lumbosacral region (principal) | CPT/HCPCS: 95886; 95909 ==

== ENCOUNTER 2022-11-06 12:46 | Outpatient (AMB) | payer MEDICARE, SELFPAY ==
--- NOTE | 2022-11-06 11:26 | MHC.OFFVIS ---
Intake Vital Signs 11/06/22 13:10 Height 6 ft 1 in Weight 235 lb BMI 31.0 Intake Visit Reasons: OV- EMG Review RT Dupuytren's contracture Intake Note: Frandy 72 yr old male presents today for his EMG review. Allergies No Known Allergies [No Known Allergies*] Allergy (Verified 11/06/22 13:10) HPI OV- EMG Review RT Dupuytren's contracture HPI Details Frandy is a 72 year old right hand dominant man who presents for a NCS review of his right hand numbness. He also has a right ring finger Dupuytrens contracture He continues to have constant numbness in the tips of his index and middle fingers. He denies any numbness in his thumb or small finger. 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 [facility] Medical History Sarcoidosis Family History Father Mental health disorder Social History (Reviewed 11/06/22 @ 13:10 by Priscilla Vargas [facility]) Housing: House Patient Tobacco Use Status: Never used Tobacco e-Cigarette/Vaping Use: Never Used Second Hand Smoke Exposure: No service: No Current occupational status: employed Current occupation: [employer] / rt hand Current occupational exposures/hazards: No Cognitive needs: No Hearing needs: No Vision needs: No Review of Systems Const All systems reviewed & are unremarkable except as noted in HPI and below Physical Exam Vital Signs: BMI result Body Mass Index 31.0 Const General: cooperative, healthy appearing and no acute distress Orientation/consciousness: patient oriented x3 HEENT Head: Yes normocephalic and Yes atraumatic Eyes EOM: EOMs intact bilaterally Resp Effort & Inspection: normal respiratory effort and able to speak in complete sentences Cardio Jugular venous distension: no JVD Skin General skin exam: turgor normal Rashes: no rashes Neuro General: patient oriented x3 Extrem Other: Evaluation of Right Upper Extremity: The patient is alert, oriented, and in no acute distress Neuro: Dense numbness in the index, middle, and radial half of the ring finger. Normal sensation in the thumb & small finger No thenar or intrinsic wasting Good APB muscle belly firing and good finger cross Vascular: Cap refill brisk ROM: He can bring his fingers closed to a fist, and his thumb, index, middle, and small fingers back into full extension Dupuytrens contracture of the ring finger of ~MCP 50/PIP 30 Dupuytrens cord extending from the palm to just past the ulnar side of the PIP joint Nerve Conduction Study: IMPRESSION: 1. This is an abnormal study. 2. There is electrodiagnostic evidence for right moderate-severe median neuropathy at the wrist, consistent with Carpal Tunnel Syndrome 3. There is electrodiagnostic evidence for right ulnar neuropathy at the elbow. 4. There is no electrodiagnostic evidence for brachial plexopathy or cervical radiculopathy. Delilah Go MD, IRINEO 09/27/22 Psych Appearance: grossly normal Affect: normal affect Attitude: cooperative Assessment & Plan Assessment & Plan (1) Dupuytren's contracture of right hand: Code(s): M72.0 - Palmar fascial fibromatosis [Dupuytren] (2) Carpal tunnel syndrome of right wrist: Code(s): G56.01 - Carpal tunnel syndrome, right upper limb (3) Cubital tunnel syndrome on right: Code(s): G56.21 - Lesion of ulnar nerve, right upper limb Plan Assessment & Plna: 1. Right Ring finger Dupuytrens contracture MCP 50/PIP 30 2. Right Carpal tunnel syndrome, moderate-severe Dense numbness in the index, middle, and radial half of the ring finger I educated him about these conditions I discussed operative and non-operative treatment options The patient would like to proceed with Surgery The risks and benefits of operative treatment were discussed with the patient and the patient wishes to proceed with surgery. These risks include, but are not limited to risk of damage to blood vessels, nerves, tendons, infection, recurrence, incomplete relief of preoperative symptoms, persistent pain, possible need for further surgery and the risks associated with regional blocks and anesthesia. The plan is to take the patient to the operating room sometime in the next few weeks for the following procedures: 1. Right ring finger Dupuytrens partial fasciectomy, under general 2. Right Carpal tunnel release, uner general All of the preoperative paperwork including the consent was filled out today. All the patient's questions were answered. The patient understands that they will be contacted by our director radiation oncology soon to schedule this procedure He denies Diabetes, blood thinners, asthma, heart, lung, kidney issues 3. Right Cubital tunnel syndrome, mild Positive on NCS, but asymptomatic at this time He can follow up to discuss treatment if he experiences new or worsening numbness Scribed for Mercy Berman MD by Tanner Burt, medical biller, on 11/06/22 at 1:55 PM, EST. Coding Level of Care Code Est Pt Level 4 (25998) Diagnoses Dupuytren's contracture of right hand M72.0 Carpal tunnel syndrome of right wrist G56.01 Cubital tunnel syndrome on right G56.21
[2022-11-06 13:10] VITALS: BMI 31.0
== END 2022-11-06 14:03 | disposition home or self-care (01) ==
PROVIDERS: PCP Nurse Practitioner Family; Visit Provider Orthopaedic Surgery
DX: M72.0 Palmar fascial fibromatosis [Dupuytren] (principal); G56.01 Carpal tunnel syndrome, right upper limb; G56.21 Lesion of ulnar nerve, right upper limb
CPT/HCPCS: 99214

== ENCOUNTER → 2022-11-06 12:46 | Outpatient (BNVA) | payer MEDICARE, SELFPAY | PROVIDERS: PCP Nurse Practitioner Family; Visit Provider Orthopaedic Surgery | DX: M72.0 Palmar fascial fibromatosis [Dupuytren] (principal); G56.01 Carpal tunnel syndrome, right upper limb; G56.21 Lesion of ulnar nerve, right upper limb | CPT/HCPCS: 99212 ==

== ENCOUNTER 2022-11-26 06:00 | Day surgery (SDC) | payer MEDICARE, SELFPAY ==
[2022-11-23 07:49] VITALS: BMI 31.0
[2022-11-26 06:19] VITALS: BP 145/80; PULSE 61; RESP 18; TEMP 36.2; O2SAT 96; BMI 30.6
[2022-11-26] MEDS: Lactated Ringers 1,000 ML 100 ML IVCONT (06:41)
--- NOTE | 2022-11-26 07:20 | HO.ANESPROP2 ---
Documented by User: Samanta Flores NP 11/22/22 12:48 HPI - Anesthesia Eval Consult details Narrative: 72yo M for Right Ring Finger Dupuytren Fasciectomy, Right Carpal Tunnel Release [place] [facility] [place]. Sarcoid stables. Slight increase in pulm nodules with repeat CT in 1 year from OV [facility] Active Problems Active Problems: All Active Problems (Updated 11/06/22 @ 13:20 by Tanner Burt) Cubital tunnel syndrome on right (Acute) Carpal tunnel syndrome of right wrist (Acute) Numbness and tingling in right hand (Acute) Dupuytren's contracture of right hand (Acute) Adult hypothyroidism (Acute) Family history of heart disease (Acute) Chest discomfort (Acute) Dupuytren contracture (Acute) Increased liver enzymes (Acute) Sarcoidosis (Acute) Mediastinal lymphadenopathy (Acute) Elevated PSA (Acute) Elevated fasting blood sugar (Acute) Increased prostate specific antigen (PSA) velocity (Acute) HTN (hypertension) (Acute) Screening PSA (prostate specific antigen) (Acute) Pulmonary nodules (Acute) Physical exam (Acute) Past Medical History Medical History Hypothyroid Sarcoidosis HTN (hypertension) Pulmonary nodules Family History Family History Father Mental health disorder Surgical History Surgical History Hx of nasal septoplasty Hx of total knee replacement H/O colonoscopy History of bronchoscopy History of surgery Social History Social History Housing: House Patient Tobacco Use Status: Never used Tobacco e-Cigarette/Vaping Use: Never Used Second Hand Smoke Exposure: No Use of substances other than those prescribed or required for medical reasons: No Are you DNR?: No Advance Directives: No Advance Directives Information Provided: Yes Recently lost weight without trying: No Nutrition Risks: No Nutritional Risk Poor oral hygiene: No service: No Current occupational status: employed Current occupation: [employer] / rt hand Current occupational exposures/hazards: No Cognitive needs: No Hearing needs: No Vision needs: No Meds Allergies Allergy/AdvReac Type Severity Reaction Status Date / Time No Known Allergies Allergy Verified 11/06/22 13:10 [No Known Allergies*] Exam Exam Date and Time: November 22, 2022 1244 Pertinent Lab Results Pertinent Lab Results: Laboratory Tests 08/17/22 07:28 WBC 5.3 Hgb 15.4 Hct 46.1 Plt Count 182 Sodium 141 Potassium 4.3 Chloride 108 Carbon Dioxide 24 BUN 19 H Creatinine 0.96 Narrative Narrative: ECHO 09/2022 Conclusions: - The left ventricular systolic function is low normal. The calculated ejection fraction is 53% by biplane method. - There is mild calcification of the aortic valve. - There is mild mitral valve regurgitation. - There is mild tricuspid valve regurgitation. NM cardiolite stress test 08/2022 IMPRESSION: 1. Myocardial perfusion imaging study shows likely normal myocardial perfusion. 2. Gated LVEF is 68% during stress and 58% during rest. 3. Transient ischemic dilatation not present. EKG component of the test reported separately. Assessment and Plan Assessment Anesthesia Assessment: Chart Reviewed Documented by User: Bee Abdalla DO 11/26/22 08:11 HPI - Anesthesia Eval Consult details Narrative: 72yo M for Right Ring Finger Dupuytren Fasciectomy, Right Carpal Tunnel Release. Baseline numbness/tungling in right hand. [place] [facility] [place] visit 08/[place]. Sarcoidosis stable. Slight increase in pulm nodules with repeat CT in 1 year from [facility] Past Medical History Medical History Hypothyroid Sarcoidosis HTN (hypertension) Pulmonary nodules Family History Family History Father Mental health disorder Family history of problems with anesthesia: No Surgical History Surgical History Hx of nasal septoplasty Hx of total knee replacement H/O colonoscopy History of bronchoscopy History of surgery History of Problems with Anesthesia: No Social History Social History Housing: House Patient Tobacco Use Status: Never used Tobacco e-Cigarette/Vaping Use: Never Used Second Hand Smoke Exposure: No Use of substances other than those prescribed or required for medical reasons: No Are you DNR?: No Advance Directives: No Advance Directives Information Provided: Yes Recently lost weight without trying: No Nutrition Risks: No Nutritional Risk Poor oral hygiene: No service: No Current occupational status: employed Current occupation: [employer] / rt hand Current occupational exposures/hazards: No Cognitive needs: No Hearing needs: No Vision needs: No Meds Allergies Allergy/AdvReac Type Severity Reaction Status Date / Time No Known Allergies Allergy Verified 11/06/22 13:10 [No Known Allergies*] Exam Exam Date and Time: November 26, 202215 Height,Weight and Vital Signs: Vital Signs Temperature 97.2 F 11/26/22 06:19 Pulse Rate 61 11/26/22 06:19 Respiratory Rate 18 11/26/22 06:19 Blood Pressure 145/80 H 11/26/22 06:19 Pulse Oximetry 96 11/26/22 06:19 Oxygen Delivery Method Room Air 11/26/22 06:19 Temperature 97.2 F 11/26/22 06:19 Pulse Rate 61 11/26/22 06:19 Respiratory Rate 18 11/26/22 06:19 Blood Pressure 145/80 H 11/26/22 06:19 Pulse Oximetry 96 11/26/22 06:19 Oxygen Delivery Method Room Air 11/26/22 06:19 Height 6 ft 1 in Weight 105.233 kg Airway Mallampati Class: II TM Dist: <=3cm Neck ROM: Full Loose/Missing/Broken Teeth: No (patient denies) Heart: S1S2 Lungs: CTAB Assessment and Plan Assessment Anesthesia Assessment: Anesthesia Plan Discussed and Chart Reviewed Final Anesthetic Review Family History of Problems with Anesthesia: No History of Problems with Anesthesia: No NPO: Yes ASA Class: II Final Preanesthetic Review: No Changes in Pt Med Stat, Meds/Allgs Chart Reviewed, Consent Obtained/Reviewed and Anes Risks/Benef Reviewed Patient Risk: Low Procedure Risk: Low Assessment/Block/Sedation in SS: Assess/Block/Sedation-SS Anesthetic Plan Anesthetic Plan: GA, Regional Block (right brachial plexus block) and Agree w/ Assess. and Plan Disposition: Standard PACU
--- NOTE | 2022-11-26 07:50 | MHC.SHP ---
Pre-Procedural Eval Section A Date of Service: 11/26/22 The patient is an INPATIENT: No Changes since office visit: No Cold of Flu in the past 2 weeks, No New Medical Problems, No Changes in Medication and No Patient answered all questions The History & Physical has been completed within 30 days and I have reviewed it.: Yes Section B Chief Complaint: Palmar fascial fibromatosis [Dupuytren] Allergies: Allergies Allergy/AdvReac Type Severity Reaction Status Date / Time No Known Allergies Allergy Verified 11/06/22 13:10 [No Known Allergies*] Plan I have reviewed the history and physical and performed a pertinent physical examination on my patient. No changes have occurred unless specified. Time Spent With Patient Time: Total time managing care of this patient today ____ minutes.
--- NOTE | 2022-11-26 07:51 | W.PM.OPN ---
Operative Note Operative Note Date of Service: 11/26/22 Narrative: Preop diagnosis: 1. right ring finger Dupuytren's contracture 2. Right carpal tunnel syndrome Postop diagnosis: Same Procedure: 1. right ring fingerPartial Dupuytren's fasciectomy 2. right ring finger ulnar digital nerve neurolysis 3. Right carpal tunnel release Surgeon: Mercy Berman MD Anesthesia: General anesthesia plus regional block Findings: Right ring finger Dupuytren's contracture. Cord passing from palm to ulnar aspect of right ring finger. Dupuytren's cord displacing ulnar neurovascular bundle to midline in the A1 victor m area with further involvement about the ulnar digital nerve extending distally to the Middle phalanx. Implants: None Tourniquet time: 120 minutes EBL: 5.0 ml Specimen: right ring finger Dupuytren's cord Drains: None Complications: None Disposition: Brought to the recovery room in stable condition Plan: Follow-up in 10-14 days for wound check, suture removal and to check pathology OT appt on day of f/u to make a custom night spint and to begin OT Indications: The patient is a a 72 year old man with right ring finger Dupuytren's contracture and right carpal tunnel syndrome . The risks and benefits of operative treatment, including but not limited to risk of damage to blood vessels, nerves, tendons, infection, recurrence, persistent pain or numbness, incomplete resolution of preoperative symptoms, or need for further surgery were discussed with the patient and they wished to proceed with surgery. Procedure: Once consent was obtained patient was brought back to the operating suite and placed in the operating table in a supine position. A regional block was performed by the anesthesia team. Perioperative antibiotics and anesthesia was administered by the anesthesia team. A tourniquet was applied to the proximal aspect of the right upper extremity and the limb was prepped and draped in a standard surgical fashion. The limb was elevated exsanguinated with Esmarch bandage and the tourniquet inflated to 250 mm of mercury for a total tourniquet time of 120 minutes. Once assured that we had a good block, a 2.0 cm longitudinal incision was made centered over the right carpal tunnel. The incision was made through the skin to the subcutaneous tissues using a #15 blade. Dissection was made down to the level of the transverse carpal ligament with care being taken to protect the palmar cutaneous nerve. Once the transverse carpal ligament was clearly visualized, a longitudinal incision was made in the transverse carpal ligament 1st using a #15 blade, then using tenotomy scissors under direct visualization. Care was taken to look for and protect the motor branch of the median nerve when seen in this area. Once satisfied with our carpal tunnel release the wound was irrigated with normal saline. I made a Aimee type incision extending along the Dupuytren's cord from the mid palm to the DIP flexion crease of the right ring finger. The Incision was made with a 15. Blade through the skin the subcutaneous tissues. I then carefully dissected down to the level of the Dupuytren's cord beginning at the proximal aspect of the incision. This was done using tenotomy in iris scissors. Care was taken to protect the nearby neurovascular structures. The Dupuytren's cord was cut at its proximal aspect using tenotomy scissors. It was then grasped with an Allis clamp. The Dupuytren's cord was then carefully dissected free in a proximal to distal direction using tenotomy scissors and again taking care to protect the nearby neurovascular structures. At about the A1 victor m area I appreciated that the ulnar neurovascular bundle was deviating from its normal anatomic position centrally to passed superficial tothe Dupuytren's cord at about the A1 victor m level. The primary portion of the central cord then passed just ulnar to the PIP joint to the middle phalanx. A 2nd portion of the central cord however did also pass radially, and to the radial aspect of the middle phalanx. The ulnar neurovascular bundle then passed deep to the cord at about the PIP joint and extending distally. Great care was taken to dissect this Dupuytren's cord from the surrounding tissues while protecting the neurovascular structures. A neurolysis was performed on the ulnar neurovascular bundle carefully dissecting it free from the Dupuytren's cords as we proceeded from proximal to distal. The radial neurovascular cord tended to stay in its anatomic position. It was also protected during our dissection. Ultimately the Dupuytren's cord was dissected free from the flexor tendon sheath, proximal in middle phalanxes, and the skin, and passed to the back table to be sent for histopathology. This then allowed me to bring the MCP, PIP and D IP joints All to full extension.. At this point the tourniquet was deflated and hemostasis obtained with a brief period of local pressure . The wound was copiously irrigated with normal saline. The skin edges were reapproximated with 4-0 and 5-0 Prolene suture. The wound was infiltrated with some 0.25% plain Marcaine for postop pain control and a sterile dressing and volar splint holding the small and ring fingers in extension was applied. The patient appears to have tolerated the procedure well and with no complications. All digits were well vascularized conclusion of the case.
[2022-11-26 10:56] VITALS: BP 120/71; PULSE 68; RESP 20; TEMP 36.2; O2SAT 96
[2022-11-26 11:01] VITALS: BP 128/71; PULSE 75; RESP 20; O2SAT 97
[2022-11-26 11:06] VITALS: BP 137/82; PULSE 78; RESP 20; O2SAT 97
[2022-11-26 11:11] VITALS: BP 146/84; PULSE 75; RESP 20; O2SAT 98
[2022-11-26 11:26] VITALS: BP 126/68; PULSE 69; RESP 20; TEMP 36.1; O2SAT 94
== END 2022-11-26 12:13 | disposition home or self-care (01) ==
PROVIDERS: PCP Nurse Practitioner Family; Visit Provider Orthopaedic Surgery
PROC: (CPT 64721; principal; 2022-11-26 07:30)
PROC: (CPT 64721; 2022-11-26 07:30)
DX: G56.01 Carpal tunnel syndrome, right upper limb (principal); M72.0 Palmar fascial fibromatosis [Dupuytren]; R20.0 Anesthesia of skin; D86.9 Sarcoidosis, unspecified; I10 Essential (primary) hypertension; R91.8 Other nonspecific abnormal finding of lung field; Z98.890 Other specified postprocedural states
CPT/HCPCS: 64721; 26123; 88304; J0690; J1100; J2250; J2371; J2405; J2795; J3010

== ENCOUNTER → 2022-11-26 06:00 | Outpatient (BNV) | payer MEDICARE, SELFPAY | PROVIDERS: PCP Nurse Practitioner Family; Visit Provider Orthopaedic Surgery | DX: M24.542 Contracture, left hand (principal); G56.01 Carpal tunnel syndrome, right upper limb | CPT/HCPCS: 26123; 64721 ==

== ENCOUNTER 2022-12-11 09:18 | Outpatient (AMB) | payer MEDICARE, SELFPAY ==
--- NOTE | 2022-12-11 09:39 | A.OFFVIS_ITS ---
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 States he still has numbness in hands due to having constant numbness prior surgery. He also has an O.T appt today. 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 He continues to have numbness in his right index, middle, and radial half of the ring finger, but he expected this as he had dense numbness prior to surgery. He says sensation is still normal in his thumb. In regards to his ring finger, he says he feels good. He has an OT appointment later today [facility] Medical History Hypothyroid Sarcoidosis HTN (hypertension) Pulmonary nodules Surgical History Hx of nasal septoplasty Hx of total knee replacement H/O colonoscopy History of bronchoscopy History of surgery Family History Father Mental health disorder Social History Housing: House Patient Tobacco Use Status: Never used Tobacco e-Cigarette/Vaping Use: Never Used Second Hand Smoke Exposure: No service: No Current occupational status: employed Current occupation: [employer] / rt hand Current occupational exposures/hazards: No Cognitive needs: No Hearing needs: No Vision needs: No Review of Systems Const All systems reviewed & are unremarkable except as noted in HPI and below Physical Exam Vital Signs: BMI result Body Mass Index 30.6 Const General: no acute distress and alert Orientation/consciousness: patient oriented x3 Neuro General: patient oriented x3 Extrem Other: The patient was alert oriented and in no acute distress The incision is healing well with no erythema drainage or evidence of infection. Sutures removed and Steri-Strips applied He can make a fist and extend all his digits He can fully extend his ring finger Still with dense numbness in the index, middle, and both halves of the ring finger. Normal sensation to the thumb and small finger Cap refill is brisk Nerve Conduction Study: IMPRESSION: 1. This is an abnormal study. 2. There is electrodiagnostic evidence for right moderate-severe median neuropathy at the wrist, consistent with Carpal Tunnel Syndrome 3. There is electrodiagnostic evidence for right ulnar neuropathy at the elbow. 4. There is no electrodiagnostic evidence for brachial plexopathy or cervical radiculopathy. Delilah Go MD, IRINEO 09/27/22 Psych Appearance: grossly normal Affect: normal affect Attitude: cooperative Assessment & Plan Assessment & Plan (1) Dupuytren's contracture of right hand: Code(s): M72.0 - Palmar fascial fibromatosis [Dupuytren] (2) Carpal tunnel syndrome of right wrist: Code(s): G56.01 - Carpal tunnel syndrome, right upper limb (3) Cubital tunnel syndrome on right: Code(s): G56.21 - Lesion of ulnar nerve, right upper limb Plan Assessment & Plna: 1. Right Ring finger Dupuytrens contracture, S/P fasciectomy DOS: 11/26/22 Pre-op: MCP 50/PIP 30 Post-op: MCP 0/PIP 0 2. Right Carpal tunnel syndrome, S/P release DOS: 11/26/22 Pre-operatively with dense numbness in the index, middle, and radial half of the ring finger. Normal sensation to thumb Post-operatively still with dense numbness, unchanged. Normal sensation to thumb The patient appears to be doing well post-operatively I educated him about the post-operative course I explained the signs and symptoms of infection, if the patient develops any new or worsening erythema, drainage, pain, or warmth they should contact the clinic or attend the ED. I discussed activity modifications, he is to lift nothing heavier than a cellphone for the next two weeks He will perform gentle ROM exercises at home he has an OT appointment for later this afternoon for a custom night splint and ROM exercises. He will wear his splint for at least 2 weeks He should avoid any underwater activities for the next week He should gently massage about the incision site to reduce the risk of hypersensitivity He can follow up next week to remove the remaining stitches, and in 4-6 weeks for a ROM check with me 3. Right Cubital tunnel syndrome, mild Positive on NCS, but asymptomatic at this time He can follow up to discuss treatment if he experiences new or worsening numbne ss Scribed for Mercy Berman MD by Tanner Burt, medical health researcher, on 12/11/22 at 10:10 AM, EST. Coding Level of Care Code Global (18356) Diagnoses Dupuytren's contracture of right hand M72.0 Carpal tunnel syndrome of right wrist G56.01 Cubital tunnel syndrome on right G56.21
[2022-12-11 09:43] VITALS: BMI 30.6
== END 2022-12-11 10:26 | disposition home or self-care (01) ==
PROVIDERS: PCP Nurse Practitioner Family; Visit Provider Orthopaedic Surgery
DX: M72.0 Palmar fascial fibromatosis [Dupuytren] (principal); G56.01 Carpal tunnel syndrome, right upper limb; G56.21 Lesion of ulnar nerve, right upper limb
CPT/HCPCS: 99024

== ENCOUNTER → 2022-12-11 09:18 | Outpatient (BNVA) | payer MEDICARE, SELFPAY | PROVIDERS: PCP Nurse Practitioner Family; Visit Provider Orthopaedic Surgery ==

== ENCOUNTER 2022-12-18 08:00 | Outpatient (RCR) | payer MEDICARE, SELFPAY ==
--- NOTE | 2022-12-12 09:21 | MHC.OT.EP ---
[address] [phone] Occupational Therapy Plan of Care Patient Name: Frandy Chambers Date of Evaluation: 12/11/22 Diagnosis: Right ring finger Dupuytrens fasciectomy Right ring ulnar digital nerve repair Right CTR Pain Location: Denies pain Pain Score: 0 Pain Scale Used: Numeric (0 - 10) Aggravating Factors: Alleviating Factors: Assessment: Pt is a 72 yo male 15 days s/p right ring finger Dupuytrens fasciectomy, right finger ulnar digital n repair and right CTR. Today he presents with impairment in right hand sensation, ring finger ROM and functional use of his right dominant hand Pt will benefit from OT for maximizing right hand ROM , scar management and hand function Frequency and Duration: The patient will be seen 1x wk x 4 wks Short Term Goals: Report compliance with right hand volar gutter for ring finger extension Demonstrate indep with scar management Demonstrate indep with right hand ROM Report awareness of elbow protection techniques for cubital tunnel diagnosis Right ring finger digit pad to DPC Right ring finger extension to neutral Half-Way Goals: Same as above Treatment Plan: Therapeutic Exercise Therapeutic Activity Home Exercise Program Splinting Patient Education Paraffin Fluidotherapy Scar management Electronically Signed By: Cinthya Tsai OT CHT CLT Please Sign and return to therapist. Thank you once again for your referral.
--- NOTE | 2022-12-18 08:41 | MHC.OT.DC ---
[address] [phone] F: [phone] Occupational Therapy Discharge Note Patient Name: Frandy Chambers Provider: Mercy Berman Diagnosis: Right ring finger Dupuytrens fasciectomy Right ring ulnar digital nerve repair Right CTR Date of Surgery: 11/26/22 Date of Evaluation: 12/11/22 Date of Discharge: 12/18/22 Treatments to Date: 2 Cancellations to Date: 0 No Shows to Date: 0 Discharge Status: Achieved Goals Improved Function Independent with HEP Discharge Summary: Pt is 3 wks s/p right hand ring finger Dupuytrens release, digital nerve release and CTR . Goals met for surgical incisions closed , night splint wear ,digit extension to neutral, and digit flexion to DPC He reports full use of his right dominant hand including daily use of his rowing machine Sensation at digit pads improved to diminished light touch digit 1-5 from impained light touch with [place] [employer] monofilaments Pt to continue HEP and monitor to ulnar nerve symptoms Electronically Signed By: Cinthya Tsai OT CHT CLT Reviewed/agree with student documentation: Therapist: Please Sign and return to therapist, thank you for your referral.
== END 2022-12-18 08:42 | disposition home or self-care (01) ==
LOC: HO.OT 08:00
PROVIDERS: PCP Nurse Practitioner Family; Visit Provider Orthopaedic Surgery
DX: M72.0 Palmar fascial fibromatosis [Dupuytren] (principal); G56.01 Carpal tunnel syndrome, right upper limb
CPT/HCPCS: 29130; 97110; 97166; 97760

== ENCOUNTER 2023-01-14 07:10 | Outpatient (REF) | payer MEDICARE, SELFPAY ==
--- NOTE | ~2023-01-14 | CT_ITS ---
EXAMINATION: CT CHEST WITHOUT CONTRAST CLINICAL INFORMATION: Multiple calcified and noncalcified lung nodules COMPARISON: 01/02/2022 TECHNIQUE: Multidetector volumetric CT imaging of the chest was done. Axial MIP volume rendering provided. Sagittal and coronal reformatted images were obtained. This CT examination was performed using dose optimization techniques as appropriate, variously including the following: *Automated exposure control *Adjustment of mA and/or kV according to patient size (this includes techniques or standardized protocols for targeted exams where dose is matched to indication/reason for exam; i.e. 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 The largest lymph node in the distal trachea measured 1.5 x 1.4 cm. There is no obvious hilar lymphadenopathy seen on noncontrast study. Thoracic aorta is nondilated. There is no pericardial effusion. CORONARY ARTERY CALCIFICATION: Mild coronary artery calcifications seen. PLEURA: There is no pleural effusion. No pleural mass or thickening. AXILLA: No lymphadenopathy. UPPER ABDOMEN: Unremarkable. OSSEOUS STRUCTURES: There is DISH in the thoracic spine CT/CT chest wo IV con IMPRESSION: 1. Stable numerous calcified and noncalcified lung nodules. 2. Stable mediastinal lymphadenopathy. Fleischner guidelines were followed.
== END 2023-01-14 07:11 | disposition home or self-care (01) ==
LOC: HO.CT 07:10
PROVIDERS: PCP Nurse Practitioner Family; Visit Provider Hospitalist
DX: R91.8 Other nonspecific abnormal finding of lung field (principal)
CPT/HCPCS: 71250

== ENCOUNTER 2023-01-23 08:43 | Outpatient (REF) | payer MEDICARE, SELFPAY ==
[2023-01-23 12:00] LABS: Prostate Specific Antigen 0.63 ng/mL (<0.05-4.0)
== END 2023-01-23 08:44 | disposition home or self-care (01) ==
LOC: HO.HMGCLDS 08:43
PROVIDERS: PCP Nurse Practitioner Family; Visit Provider Urology
DX: Z12.5 Encounter for screening for malignant neoplasm of prostate (principal); R97.20 Elevated prostate specific antigen [PSA]
CPT/HCPCS: 36415; 84153

== ENCOUNTER 2023-01-24 08:38 | Outpatient (AMB) | payer MEDICARE, SELFPAY ==
--- NOTE | 2023-01-24 08:46 | MHC.OFFVIS ---
Intake Intake Visit Reasons: PSA results Intake Note: Patient is Present for Follow Up PSA Urology Medication: None Antibiotic Allergies: None Blood Thinners: None : Allergies No Known Allergies [No Known Allergies*] Allergy (Verified 01/24/23 08:47) HPI HPI Comments History of Present Illness Details Frandy is a pleasant male. He is a patient of Dr. Campos. He is seen for the following urologic conditions - elevated PSA PSA remains low Voiding parameters waking 2 times per night Discussed possible BPH medications At this point in time does not have significant bother Follow-up p.r.n. Elevated PSA Recent PSA rise Currently normal but significant increased since prior Discussed steps to normalize PSA at time of test Minimal symptoms with adequate storage and voiding control No family history PSA 11/28 0.4, 11/01 2.2, 02/01 0.7, 02/02 0.6 Twelve month follow-up PSA tele visit [facility] Medical History Hypothyroid Sarcoidosis HTN (hypertension) Pulmonary nodules Surgical History Hx of nasal septoplasty Hx of total knee replacement H/O colonoscopy History of bronchoscopy History of surgery Family History Father Mental health disorder Social History Housing: House Patient Tobacco Use Status: Never used Tobacco e-Cigarette/Vaping Use: Never Used Second Hand Smoke Exposure: No service: No Current occupational status: employed Current occupation: [employer] / rt hand Current occupational exposures/hazards: No Cognitive needs: No Hearing needs: No Vision needs: No Review of Systems Const Denies chills and Denies fever(s) Card Reports no additional complaints and Denies syncope Resp Denies cough GI Denies abdominal pain and Denies heartburn Reports as per HPI and Denies change in libido Neuro Denies syncope Psych Denies change in libido Endo Denies change in libido Physical Exam Const General: cooperative, healthy appearing, comfortable and no acute distress Orientation/consciousness: patient oriented x3 HEENT Face and sinus: Yes normal facial exam Mouth: moist mucous membranes Neck Neck: Yes normal visual inspection, Yes full ROM and Yes trachea midline Chest Chest palpation & inspection: normal inspection of the chest Resp Effort & Inspection: normal respiratory effort, able to speak in complete sentences and no respiratory distress GI Inspection: Yes normal to inspection Back/Spine/Pelvis Cervical Spine: normal cervical lordosis Thoracic/Lumbar Spine: thoracic and lumbar spine normal to inspection Skin General skin exam: no rashes or lesions noted Neuro General: patient oriented x3, gait normal, tone normal and moves all extremities Extrem General: Yes normal to inspection and Yes capillary refill normal Assessment & Plan Assessment & Plan (1) Elevated PSA: Code(s): R97.20 - Elevated prostate specific antigen [PSA] Plan P.r.n. follow-up Patient Instructions: Imaging studies, laboratory and physical exam results were discussed and reviewed in detail. No major barriers to patient understanding were identified. An opportunity to ask questions regarding the treatment plan was provided. All questions were answered. The patient expressed understanding and agreement with the above treatment plan. The patient is aware they should contact our office by phone for worsening of their current condition or the appearance of new urologic symptoms. Compliance is encouraged with any medications and followup testing that is ordered. It is a privilege to participate in the urologic care of your patient. If you have any questions or concerns regarding treatment for the above conditions, or other urologic issues, please do not hesitate to contact me. The office telephone contact is [phone]. This note is constructed using voice recognition software. While every effort has been made to ensure accuracy installer apprentice errors may have been included. Yours sincerely, Dr Kyle Singh MD, IRINEO [facility] - Urology Providers of Expert, Compassionate Care for the Genitourinary System Coding Level of Care Code Est Pt Level 4 (65236) Diagnoses Elevated PSA R97.20
== END 2023-01-24 08:56 | disposition home or self-care (01) ==
PROVIDERS: PCP Nurse Practitioner Family; Visit Provider Urology
DX: R97.20 Elevated prostate specific antigen [PSA] (principal)
CPT/HCPCS: 99213

== ENCOUNTER → 2023-01-24 08:38 | Outpatient (BNVA) | payer MEDICARE, SELFPAY | PROVIDERS: PCP Nurse Practitioner Family; Visit Provider Urology | DX: R97.20 Elevated prostate specific antigen [PSA] (principal) | CPT/HCPCS: 99212 ==

== ENCOUNTER 2023-02-27 07:27 | Outpatient (AMB) | payer MEDICARE, SELFPAY ==
--- NOTE | 2023-02-27 07:48 | A.OFFPC_ITS ---
Vital Signs 02/27/23 07:52 Height 6 ft 1 in Weight 242 lb BMI 31.9 BP 120/82 Blood Pressure Location Rt brachial Position Sitting Pulse 67 Pulse Source Pulse Oximeter Pulse Oximetry (%) 95 Oxygen Delivery Method Room Air Intake Visit Reasons: Annual PE Intake Note: Patient here for physical exam. no new issues or concerns. Allergies No Known Allergies [No Known Allergies*] Allergy (Verified 02/27/23 07:53) Medication List - Last Reconciled 02/27/23 by JESSICA Robles amlodipine 10 mg PO DAILY budesonide-formoterol 160-4.5 mcg/actuation (Symbicort) 2 puffs inhalation BID 30 days ibuprofen 600 mg PO Q6-8H PRN levothyroxine 137 mcg PO DAILY 90 days metoprolol succinate ER 50 mg PO DAILY Tobacco use date assessed: 02/27/23 Fall risk assessment: No Falls in past year Last assessed Fall Risk: 02/27/23 Dental Screening Dental Screen Date: 02/27/23 Did you have a dental visit in the last 12 months?: Yes Did you have a dental problem in the last 6 months where you did not have access to dental care?: No Was dental information given to patient?: Patient has dentist HPI Annual PE HPI Details Pt is here for a PE. Will order labs. Colon screen is up to date. PSA is up to date. Denies dribbling with urination, weak stream, and frequent nocturia. Pt sees urology and pulmonology. Hx of vitamin D deficiency, will order labs. [facility] Medical History Hypothyroid Sarcoidosis HTN (hypertension) Pulmonary nodules Surgical History Hx of nasal septoplasty Hx of total knee replacement H/O colonoscopy History of bronchoscopy History of surgery Family History Father Mental health disorder Social History Housing: House Patient Tobacco Use Status: Never used Tobacco e-Cigarette/Vaping Use: Never Used Second Hand Smoke Exposure: No service: No Current occupational status: employed Current occupation: [employer] / rt hand Current occupational exposures/hazards: No Cognitive needs: No Hearing needs: No Vision needs: No Questionnaire PHQ-9 Over the last 2 weeks, how often have you been bothered by any of the following problems? 1. Little interest or pleasure in doing things: not at all 2. Feeling down, depressed, or hopeless: not at all 3. Trouble falling or staying asleep, or sleeping too much: not at all 4. Feeling tired or having little energy: not at all 5. Poor appetite or overeating: not at all 6. Feeling bad about yourself - or that you are a failure or have let yourself or your family down: not at all 7. Trouble concentrating on things, such as reading the newspaper or watching television: not at all 8. Moving or speaking so slowly that other people could have noticed. Or the opposite - being so fidgety or restless that you have been moving around a lot more than usual: not at all 9. Thoughts that you would be better off or of hurting yourself in some way: not at all Total score: 0 Depression Screening Interpretation: Negative Depression Screening Done: Yes 05780 - PHQ-9 Billing: Yes Source: Developed by Drs. Toby Abdi, Rose Trevino, Wilmer Alexandre and colleagues, with an educational davide from [employer]. Thrive Questionnaire Date Thrive assessed: 02/27/23 I am a: Patient What is your living situation today?: I have a steady place to live Within the past 12 months, did the food you bought not last and you didn't have the money to get more?: Never true Within the past 12 months, did you worry whether your food would run out before you got money to buy more?: Never true Do you have trouble paying for medicines?: No Do you have trouble getting transportation to medical appointments?: No Do you have trouble paying your heating and electricity bill?: No Do you have trouble taking care of your child, family member or friend?: No Do you have trouble with day-to-day activities such as bathing, preparing meals, shopping, managing finances, etc.?: No Are you currently unemployed and looking for a job?: No Are you interested in more education?: No LESLIE-7 AMB Questionnaire LESLIE-7 Date LESLIE - 7 assessed: 02/27/23 Feeling nervous, anxious, or on edge: 0 = Not at all Not being able to stop or control worryin = Not at all Worrying too much about different things: 0 = Not at all Trouble relaxin = Not at all Being so restless that it is hard to sit still: 0 = Not at all Becoming easily annoyed or irritable: 0 = Not at all Feeling afraid as if something awful might happen: 0 = Not at all Total LESLIE-7 score (0-4 normal; 5-9 mild; 10-14 moderate; 15-21 severe): 0 Source: Developed by Drs. Toby Abdi, Rose Trevino, Wilmer Alexandre and colleagues, with an educational davide from [employer]. LESLIE-7 Assessment Billing LESLIE-7 Assessment Tool: LESLIE-7 Assessment 90921 Review of Systems Const Denies chills and Denies fever(s) Eyes Denies blurry vision ENT Denies vertigo, Denies dizziness and Denies sore throat Card Denies chest pain at rest, Denies chest pain with activity, Denies diaphoresis, Denies dyspnea and Denies dyspnea on exertion Resp Denies cough, Denies dyspnea, Denies dyspnea on exertion and Denies wheezing GI Denies abdominal pain, Denies melena, Denies hematochezia, Denies constipation, Denies diarrhea and Denies loose stools Denies hematuria Musc Denies numbness and Denies tingling Skin/Breast Denies lesions Neuro Denies vertigo, Denies dizziness, Denies numbness and Denies tingling Psych Denies anxiety, Denies depression, Denies homicidal ideation, Denies suicidal ideation and Denies other (substance abuse) Aller/Immun Denies wheezing Physical exam (Primary Care) Vital Signs: Last Vital Signs Pulse 67 02/27/23 07:52 BP 120/82 02/27/23 07:52 Pulse Ox 95 02/27/23 07:52 Oxygen Delivery Method Room Air 02/27/23 07:52 BMI result Body Mass Index 31.9 Tobacco/Smoking Status: Tobacco use Status Tobacco use date assessed 02/27/23 02/27/23 07:55 Patient Tobacco Use Status Never used Tobacco 02/27/23 07:50 e-Cigarette/Vaping Use Never Used 02/27/23 07:50 PHQ-9: PHQ-9 Score PHQ-9: Total score 0 02/27/23 08:09 Depression Screening Interpretation: Negative Thrive Assessment: Date of Thrive Assessment Date Thrive assessed 02/27/23 02/27/23 08:09 Const General: cooperative Nutritional Appearance: obese Orientation/consciousness: patient oriented x3 HENMT Head: Yes normal to inspection, Yes normocephalic and Yes atraumatic Ears: TM's normal bilaterally Eyes General: appearance normal, both eyes and all related structures Alignment and Position: alignment normal and position normal Neck Neck: Yes normal visual inspection and Yes no lymphadenopathy Thyroid: Thyroid normal Resp Effort & Inspection: normal respiratory effort Auscultation: clear to auscultation bilaterally Cardio Rate: regular rate Rhythm: regular rhythm Heart sounds: S1 normal heart sound present, S2 normal heart sound present and no murmurs GI Palpation (GI): Soft to palpation and nontender Auscultation: normal bowel sounds Male General Exam: Yes normal external exam Penis: normal penis Scrotum: scrotum normal, testes descended bilaterally and no inguinal hernias Testes: no testicular mass Skin Rashes: no rashes Neuro General: patient oriented x3, moves all extremities, no focal motor deficits and deep tendon reflexes 2+ bilaterally Romberg Test: Negative Psych Appearance: grossly normal Mental Status: mental status grossly normal Speech and movement: Normal speech and movement present Affect: normal affect Attitude: cooperative Thought process: Normal thought process present Thought content: Normal thought content present Insight: Good insight present (Psych) Judgement: Good judgement present (Psych) Assessment and Plan Assessment & Plan (1) Physical exam: Code(s): Z00.00 - Encounter for general adult medical examination without abnormal findings Plan: Labs ordered (2) Vitamin D deficiency: Code(s): E55.9 - Vitamin D deficiency, unspecified Plan: Vitamin D ordered Plan The patient agreed to the use of a medical assistant internal medicine for this encounter. Scribed for JESSICA Mei by Mary Upton medical assistant internal medicine, on 02/27/2023 at 08:05 EST. Orders: Orders Lipid Panel Today Z00.00 - Encounter for general adult medical examination without abnormal findings Complete Blood Count Auto Diff Today Z00.00 - Encounter for general adult medical examination without abnormal findings Comprehensive [place]. Panel Fast Today Z00.00 - Encounter for general adult medical examination without abnormal findings TSH reflex Free T4 Today Z00.00 - Encounter for general adult medical examination without abnormal findings UA CC w/rflx Micro + Cult Today Z00.00 - Encounter for general adult medical examination without abnormal findings Vitamin D 25-OH Total Today E55.9 - Vitamin D deficiency, unspecified Coding Level of Care Code Est Pt Prev Care >65y(26873) Diagnoses Physical exam Z00.00 Vitamin D deficiency E55.9 Additional Codes LESLIE-7 Assessment Billing - LESLIE-7 Assessment Tool: LESLIE-7 Assessment [id number] ([id number])
[2023-02-27 07:52] VITALS: BP 120/82; PULSE 67; O2SAT 95; BMI 31.9
== END 2023-02-27 08:18 | disposition home or self-care (01) ==
PROVIDERS: PCP Nurse Practitioner Family; Visit Provider Nurse Practitioner Family
DX: Z00.00 Encounter for general adult medical examination without abnormal findings (principal); E55.9 Vitamin D deficiency, unspecified
CPT/HCPCS: 99397

== ENCOUNTER 2023-06-11 08:21 | Outpatient (REF) | payer MEDICARE, SELFPAY ==
[2023-06-11 10:24] LABS: MANUAL DIFF FLAG NO
[2023-06-11 10:39] LABS: Basophils Percent Auto 0.9 % (0-2); Eosinophils Absolute Auto 0.3 X10*3/uL (0.0-0.4); Eosinophils Percent Auto 5.5 % (0-4); Hematocrit 44.8 % (42.0-52.0); Hemoglobin 15.3 g/dl (14.0-18.0); Imm Gran Abs Auto 0.01 X10*3/uL (0.00-0.03); Imm Gran Pct Auto 0.2 % (0.0-0.4); Lymphocytes Absolute Auto 1.6 X10*3/uL (1.2-4.9); Lymphocytes Percent Auto 34.6 % (20-40); Mean Corpuscular HGB Conc 34.2 g/dl (31.0-36.0); Mean Corpuscular Hemoglobin 30.7 pg (27.0-33.0); Mean Corpuscular Volume 89.8 fL (80.0-98.0); Mean Platelet Volume 10.4 fL (9.4-12.4); Monocytes Absolute Auto 0.4 X10*3/uL (0.1-1.2); Monocytes Percent Auto 9.4 % (2-11); Neutrophils Absolute Auto 2.3 x10*3/uL (2.0-8.3); Neutrophils Percent Auto 49.4 % (45-73); Platelet Count 168 X10*3/uL (160-400); Red Blood Count 4.99 X10*6/uL (4.60-5.80); Red Cell Distribution Width 12.7 % (11.0-16.0); White Blood Count 4.6 X10*3/uL (4.8-10.8)
[2023-06-11 10:45] LABS: Appearance Urine Clear; Color Urine Yellow; Glucose Urine UA Negative (Negative); Leukocyte Esterase Urine Negative (Negative); Nitrite Urine Negative (Negative); PH 5.5 (5.0-9.0); Specific Gravity - Urine 1.025 (1.005-1.025); Urine Blood Negative (Negative); Urine Ketones Trace mg/dL (Negative); Urine Protein Negative (Neg-Trace)
[2023-06-11 11:16] LABS: Alanine Aminotransferase 32 U/L (0-40); Albumin Level 4.1 g/dL (3.5-5.0); Alkaline Phosphatase 66 U/L (39-117); Anion Gap 12 (12-20); Aspartate Amino Transferase 26 U/L (5-37); Bilirubin Total 0.7 mg/dL (0.0-1.0); Blood Urea Nitrogen 19 mg/dL (9-16); Calcium 8.8 mg/dL (8.4-10.2); Carbon Dioxide 22 mmol/L (22-29); Chloride 109 mmol/L (96-108); Cholesterol 152 mg/dL (<200); Estimated Glomerular Filt Rate > 60; Glucose Fasting 113 mg/dL (60-99); HDL Cholesterol 39 mg/dL (>40); LDL Cholesterol Calculated 92 mg/dL (<100); Potassium 4.1 mmol/L (3.3-5.1); Sodium 139 mmol/L (135-145); TSH reflex Free T4 1.01 uIU/mL (0.32-4.0); Total Protein 7.2 g/dL (6.5-8.0); Triglycerides 107 mg/dL (<150); Vitamin D 25-OH Total 32.5 ng/mL (>30)
== END 2023-06-11 08:22 | disposition home or self-care (01) ==
LOC: HO.HMGCLDS 08:21
PROVIDERS: PCP Nurse Practitioner Family; Visit Provider Nurse Practitioner Family
DX: Z00.00 Encounter for general adult medical examination without abnormal findings (principal); E55.9 Vitamin D deficiency, unspecified
CPT/HCPCS: 36415; 80053; 80061; 81003; 82306; 84443; 85025

== ENCOUNTER 2023-07-19 12:43 | Outpatient (AMB) | payer MEDICARE, SELFPAY ==
[2023-07-19 12:51] VITALS: PULSE 71; O2SAT 96; BMI 31.1
--- NOTE | 2023-07-19 12:51 | MHC.OFFVIS ---
Vital Signs 07/19/23 12:51 Height 6 ft 1 in Weight 236 lb BMI 31.1 Pulse 71 Pulse Source Pulse Oximeter Pulse Oximetry (%) 96 Oxygen Delivery Method Room Air Intake Visit Reasons: productive cough/hemoptysis Byproducts Operator Required: No Allergies No Known Allergies [No Known Allergies*] Allergy (Verified 07/19/23 12:52) HPI Comments Details: The patient is a 72-year-old gentleman with a known history of pulmonary nodules. Back in 2017 the patient was noted to have the pulmonary nodules in addition to lymphadenopathy. He did undergo a bronchoscopy demonstrating just reactive inflammatory changes. Subsequently in 2018 underwent a mediastinoscopy biopsy of the 4R lymph node. This demonstrated granulomas which were non necrotizing. fungal and AFB stains were negative. And also the cultures from previous bronchoscopy were negative for any infectious processes. This brings up the possibility of sarcoidosis. The patient subsequently had a repeat CT scan of the chest in October 2020 demonstrating multiple pulmonary nodules in addition to persistent adenopathy. From a respiratory status the patient continues to have some degree of cough. He also has shortness of breath with activity at times. He does not having any others. Patient denies any rashes denies any eye or visual changes. At this point does not appear to have any extra pulmonary manifestations of sarcoidosis. In regards of his obstructive sleep apnea the patient has been on CPAP for many years. 02/21/2022 the patient is here for a pulmonary follow-up visit. Overall the patient is doing well. He does describe episodes of coughing and chest tightness. Typically between 3 to 4 times a week. He is not using any inhalers at this time. We did review his pulmonary function studies which demonstrated just an isolated diffusion impairment. This was mild. Possibly some small airways disease but not significant. The patient also had blood work demonstrating some elevations in his eosinophils suggesting potential allergies. He also had a slight elevation of the Jose Cruz level suggesting sarcoid activity. The rest of the blood work was benign therefore no liver or kidney involvement. His calcium levels are within normal limits. He recently had his eyes checked and no mention of sarcoid was noted. The patient overall is doing well. He did have a repeat CT scan of the chest that was personally by me. It appears that the nodules and the lymphadenopathy is stable at this time. Will go ahead and start him on inhaled cortical steroid/albuterol inhaler that he can use initially as needed during his episodes. If he sees that he is using it often and he sees that he is getting good response to the therapy then he can start using it on a daily basis in the morning. He should also rinse his mouth after using it. Will follow-up in 6 months but will follow-up with a repeat CT scan in a year's time. 08/29/2022 the patient is here for pulmonary follow-up visit. Overall patient very well. He lost about 20 lb with weight management. He also stopped using Symbicort daily since he has been doing better. He can always use it as needed. The patient did have a pulmonary function study back in January 2022 which we reviewed again demonstrating on no with definitive obstructive ventilatory defects although some slight small airways disease. The patient also had a mild diffusion impairment. His last CT scan was back in December 2021 that was compared to a previous CT scan from 2018. His pulmonary nodules appear to be stable although slightly increased prominence in the lymphadenopathy. Will plan to repeat the CT scan in a year's time since he is doing so well. If he develops any worsening symptoms prior to that will any other concerning issues she can always call so we can reassess earlier. 07/19/2023 the patient is here for pulmonary follow-up visit. Overall he feels like it is getting worse. He is having more chest congestion. He is also having episodes of hemoptysis. This has been happening for the last few weeks. The usual hemoptysis she is mixed in with sputum. Typically scant amount. Typically he gets more phlegm in the morning. Then after that settles down. He has not been using the Symbicort. He did undergo a CT scan of the chest that was personally reviewed back from 01/30/2023 demonstrating small numerous pulmonary nodules that are calcified in addition to some lymphadenopathy. No significant changes to suggest active sarcoidosis at this time. Is all reassuring although 6 months prior. The patient will try to get a sputum culture. He does have significant eosinophilia on his differential suggesting a component of eosinophilic bronchitis. I do believe then held cortical steroids will help decrease the phlegm production. Will also try to get a culture. He will try azithromycin 3 times a week to treat chronic bronchitis for the next 6-8 weeks and see there is any improvement. Will follow-up after that. If the patient is not able to bring sputum sample or if he has not feeling any better with the therapy he will call and will consider bronchoscopy. 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 Current occupational exposures/hazards: No Cognitive needs: No Hearing needs: No Vision needs: No Review of Systems Const Details: Denies fatigue, Denies fever(s) and Denies night sweats Eyes Denies change in vision and Denies itchy eyes ENT Denies change in voice Card Denies chest pain and Denies dyspnea on exertion Resp Reports chest congestion, Reports cough, Reports hemoptysis and Denies dyspnea on exertion GI Reports no additional complaints Musc Reports arthralgias Skin/Breast Denies rash Neuro Reports no additional complaints Endo Denies fatigue and Denies flushing Sheldon/Lymph Denies easy bleeding and Denies easy bruising Aller/Immun Denies itchy eyes Physical Exam Vital Signs: Last Vital Signs Pulse 71 07/19/23 12:51 Pulse Ox 96 07/19/23 12:51 Oxygen Delivery Method Room Air 07/19/23 12:51 BMI result Body Mass Index 31.1 Const General: cooperative, healthy appearing, comfortable and no acute distress Orientation/consciousness: patient oriented x3 HEENT Head: Yes normal to inspection Face and sinus: Yes normal facial exam Mouth: moist mucous membranes Neck Neck: Yes normal visual inspection, Yes full ROM and Yes trachea midline Chest Chest palpation & inspection: normal inspection of the chest Resp Effort & Inspection: normal respiratory effort Auscultation: clear to auscultation bilaterally Cardio Rate: regular rate Rhythm: regular rhythm Heart sounds: S1 normal heart sound present and S2 normal heart sound present GI Palpation (GI): Soft to palpation Auscultation: normal bowel sounds Skin General skin exam: no rashes or lesions noted Neuro General: patient oriented x3, gait normal, tone normal and moves all extremities Extrem General: Yes no clubbing, cyanosis or edema Assessment & Plan Assessment & Plan (1) Sarcoidosis: Comment: follows /[facility] Pulmonology Code(s): D86.9 - Sarcoidosis, unspecified Category: Medical (2) Mediastinal lymphadenopathy: Code(s): R59.0 - Localized enlarged lymph nodes Category: Medical (3) Pulmonary nodules: Code(s): R91.8 - Other nonspecific abnormal finding of lung field Category: Medical (4) Chronic bronchitis: Code(s): J42 - Unspecified chronic bronchitis Category: Medical Qualifiers: Chronic bronchitis type: mixed simple and mucopurulent Qualified Code(s): J41.8 - Mixed simple and mucopurulent chronic bronchitis (5) Hemoptysis: Code(s): R04.2 - Hemoptysis Category: Medical Plan sputum cx stopped Symbicort start QVAR start Azithromycin consider Bronchoscopy if no better F/U 1-2 months Orders: Orders Smear for EOS (Nasal/Sputum) 07/19/23 J42 - Unspecified chronic bronchitis Sputum Cult + Gram stain 07/19/23 J42 - Unspecified chronic bronchitis Medications: New azithromycin Take 1 tablet on Saturday/Saturday/Saturday 250 mg PO 3XW 12 tabs 1RF 28 days K21.9 - Gastro-esophageal reflux disease without esophagitis beclomethasone dipropionate 80 mcg/actuation (Qvar RediHaler) 2 inhalations inhalation BID 10.6 grams 11RF 30 days Coding Level of Care Code Est Pt Level 4 (15594) Diagnoses Sarcoidosis D86.9 Mediastinal lymphadenopathy R59.0 Pulmonary nodules R91.8 Mixed simple and mucopurulent chronic bronchitis J41.8 Chronic bronchitis type: mixed simple and mucopurulent Hemoptysis R04.2 Time Spent (min) 18
== END 2023-07-19 13:15 | disposition home or self-care (01) ==
PROVIDERS: PCP Nurse Practitioner Family; Visit Provider Hospitalist
DX: D86.9 Sarcoidosis, unspecified (principal); R59.0 Localized enlarged lymph nodes; R91.8 Other nonspecific abnormal finding of lung field; J41.8 Mixed simple and mucopurulent chronic bronchitis; R04.2 Hemoptysis
CPT/HCPCS: 99214

== ENCOUNTER → 2023-07-19 12:43 | Outpatient (BNVA) | payer MEDICARE, SELFPAY | PROVIDERS: PCP Nurse Practitioner Family; Visit Provider Hospitalist | DX: J41.8 Mixed simple and mucopurulent chronic bronchitis (principal); R04.2 Hemoptysis; R91.8 Other nonspecific abnormal finding of lung field; R59.0 Localized enlarged lymph nodes; D86.9 Sarcoidosis, unspecified | CPT/HCPCS: 99212 ==

== ENCOUNTER 2023-08-26 08:20 | Outpatient (AMB) | payer MEDICARE, SELFPAY ==
--- NOTE | 2023-08-26 08:25 | MHC.PC.OV ---
Vital Signs 08/26/23 08:33 08/26/23 09:05 Weight 249 lb BP 140/90 H 140/90 H Blood Pressure Location Lt brachial Lt brachial Position Sitting Sitting Pulse 62 Pulse Source Pulse Oximeter Pulse Oximetry (%) 96 Oxygen Delivery Method Room Air Intake Visit Reasons: 6 month fu Allergies No Known Allergies [No Known Allergies*] Allergy (Verified 08/26/23 08:34) Medication List - Last Reconciled 08/26/23 by JESSICA Robles amlodipine 10 mg PO DAILY azithromycin 250 mg PO 3XW 28 days colchicine 0.3 mg (1/2 x 0.6 mg) PO DAILY PRN fluticasone furoate 200 mcg/actuation (Arnuity Ellipta) 1 inh inhalation DAILY ibuprofen 600 mg PO Q6-8H PRN levothyroxine 137 mcg PO DAILY 90 days metoprolol succinate ER 50 mg PO DAILY Tobacco use date assessed: 02/27/23 Dental Screening Dental Screen Date: 02/27/23 HPI 6 month fu HPI Details HTN: denies any CP, SOB, CARUSO, blurred vision or CARUSO. On amlodipine and metoloprolol. WIll have him take his BPs at home, dropping off values in the near future. 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 1. Little interest or pleasure in doing things: not at all 2. Feeling down, depressed, or hopeless: not at all 3. Trouble falling or staying asleep, or sleeping too much: not at all 4. Feeling tired or having little energy: not at all 5. Poor appetite or overeating: not at all 6. Feeling bad about yourself - or that you are a failure or have let yourself or your family down: not at all 7. Trouble concentrating on things, such as reading the newspaper or watching television: not at all 8. Moving or speaking so slowly that other people could have noticed. Or the opposite - being so fidgety or restless that you have been moving around a lot more than usual: not at all 9. Thoughts that you would be better off or of hurting yourself in some way: not at all Total score: 0 Depression Screening Interpretation: Negative Depression Screening Done: Yes 92306 - PHQ-9 Billing: Yes Source: Developed by Drs. Toby Abdi, Rose Trevino, Wilmer Alexandre and colleagues, with an educational davide from [employer]. Thrive Questionnaire Date Thrive assessed: 08/26/23 I am a: Patient What is your living situation today?: I have a steady place to live Within the past 12 months, did the food you bought not last and you didn't have the money to get more?: Never true Within the past 12 months, did you worry whether your food would run out before you got money to buy more?: Never true Do you have trouble paying for medicines?: No Do you have trouble getting transportation to medical appointments?: No Do you have trouble paying your heating and electricity bill?: No Do you have trouble taking care of your child, family member or friend?: No Do you have trouble with day-to-day activities such as bathing, preparing meals, shopping, managing finances, etc.?: No Are you currently unemployed and looking for a job?: No Are you interested in more education?: No Please select the resources that you would like help with: Housing/Care Home THRIVE Score: 0 AUDIT C Alcohol Use Questionnaire (AUDIT-C) 1. How often do you have a drink containing alcohol?: 2-3 times a week 2. How many drinks containing alcohol do you have on a typical day when you are drinking?: 1 or 2 3. How often do you have six or more drinks on one occasion?: Never Total Score: 3 Score Reviewed/Action Taken: No LESLIE-7 AMB Questionnaire LESLIE-7 Date LESLIE - 7 assessed: 02/27/23 Source: Developed by Drs. Toby Abdi, Rose Trevino, Wilmer Alexandre and colleagues, with an educational davide from [employer]. LESLIE-7 Assessment Billing LESLIE-7 Assessment Tool: pt declined-do not bill Physical exam (Primary Care) Vital Signs: Last Vital Signs Pulse 62 08/26/23 08:33 BP 140/90 H 08/26/23 08:33 Pulse Ox 96 08/26/23 08:33 Oxygen Delivery Method Room Air 08/26/23 08:33 Tobacco/Smoking Status: Tobacco use Status Tobacco use date assessed 02/27/23 08/26/23 08:26 Patient Tobacco Use Status Never used Tobacco 08/26/23 08:26 e-Cigarette/Vaping Use Never Used 08/26/23 08:26 PHQ-9: PHQ-9 Score PHQ-9: Total score 0 08/26/23 08:33 Depression Screening Interpretation: Negative Thrive Assessment: Date of Thrive Assessment Date Thrive assessed 08/26/23 08/26/23 08:26 Const General: cooperative Resp Auscultation: clear to auscultation bilaterally Cardio Rate: regular rate Rhythm: regular rhythm Heart sounds: S1 normal heart sound present, S2 normal heart sound present and no murmurs Extrem Other: trace edema to BLE. Assessment and Plan Assessment & Plan (1) Elevated fasting blood sugar: Code(s): R73.01 - Impaired fasting glucose (2) HTN (hypertension): Code(s): I10 - Essential (primary) hypertension Plan: will have pt take his BP at home, dropping off values the he near future. Orders: Orders Comprehensive [place]. Panel Fast Today R73.01 - Impaired fasting glucose Lipid Panel Today R73.01 - Impaired fasting glucose TSH reflex Free T4 Today R73.01 - Impaired fasting glucose Complete Blood Count Auto Diff Today R73.01 - Impaired fasting glucose UA CC w/rflx Micro + Cult Today R73.01 - Impaired fasting glucose Coding Level of Care Code Est Pt Level 3 (49146) Diagnoses Elevated fasting blood sugar R73.01 HTN (hypertension) I10
[2023-08-26 08:33] VITALS: BP 140/90; PULSE 62; O2SAT 96
[2023-08-26 09:05] VITALS: BP 140/90
== END 2023-08-26 13:24 | disposition home or self-care (01) ==
PROVIDERS: PCP Nurse Practitioner Family; Visit Provider Nurse Practitioner Family
DX: R73.01 Impaired fasting glucose (principal); I10 Essential (primary) hypertension
CPT/HCPCS: 99213

== ENCOUNTER 2023-10-02 08:29 | Outpatient (AMB) | payer MEDICARE, SELFPAY ==
[2023-10-02 08:36] VITALS: PULSE 65; O2SAT 95; BMI 31.9
--- NOTE | 2023-10-02 08:36 | A.OFFVIS_ITS ---
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 Back in 2017 the patient was noted to have the pulmonary nodules in addition to lymphadenopathy. He did undergo a bronchoscopy demonstrating just reactive inflammatory changes. Subsequently in 2018 underwent a mediastinoscopy biopsy of the 4R lymph node. This demonstrated granulomas which were non necrotizing. fungal and AFB stains were negative. And also the cultures from previous bronchoscopy were negative for any infectious processes. This brings up the possibility of sarcoidosis. The patient subsequently had a repeat CT scan of the chest in October 2020 demonstrating multiple pulmonary nodules in addition to persistent adenopathy. From a respiratory status the patient continues to have some degree of cough. He also has shortness of breath with activity at times. He does not having any others. Patient denies any rashes denies any eye or visual changes. At this point does not appear to have any extra pulmonary manifestations of sarcoidosis. In regards of his obstructive sleep apnea the patient has been on CPAP for many years. 02/21/2022 the patient is here for a pulmonary follow-up visit. Overall the patient is doing well. He does describe episodes of coughing and chest tightness. Typically between 3 to 4 times a week. He is not using any inhalers at this time. We did review his pulmonary function studies which demonstrated just an isolated diffusion impairment. This was mild. Possibly some small airways disease but not significant. The patient also had blood work demonstrating some elevations in his eosinophils suggesting potential allergies. He also had a slight elevation of the Jose Cruz level suggesting sarcoid activity. The rest of the blood work was benign therefore no liver or kidney involvement. His calcium levels are within normal limits. He recently had his eyes checked and no mention of sarcoid was noted. The patient overall is doing well. He did have a repeat CT scan of the chest that was personally by me. It appears that the nodules and the lymphadenopathy is stable at this time. Will go ahead and start him on inhaled cortical steroid/albuterol inhaler that he can use initially as needed during his episodes. If he sees that he is using it often and he sees that he is getting good response to the therapy then he can start using it on a daily basis in the morning. He should also rinse his mouth after using it. Will follow-up in 6 months but will follow-up with a repeat CT scan in a year's time. 08/29/2022 the patient is here for pulmonary follow-up visit. Overall patient very well. He lost about 20 lb with weight management. He also stopped using Symbicort daily since he has been doing better. He can always use it as needed. The patient did have a pulmonary function study back in January 2022 which we reviewed again demonstrating on no with definitive obstructive ventilatory defects although some slight small airways disease. The patient also had a mild diffusion impairment. His last CT scan was back in December 2021 that was compared to a previous CT scan from 2018. His pulmonary nodules appear to be stable although slightly increased prominence in the lymphadenopathy. Will plan to repeat the CT scan in a year's time since he is doing so well. If he develops any worsening symptoms prior to that will any other concerning issues she can always call so we can reassess earlier. 07/19/2023 the patient is here for pulmonary follow-up visit. Overall he feels like it is getting worse. He is having more chest congestion. He is also having episodes of hemoptysis. This has been happening for the last few weeks. The usual hemoptysis she is mixed in with sputum. Typically scant amount. Typically he gets more phlegm in the morning. Then after that settles down. He has not been using the Symbicort. He did undergo a CT scan of the chest that was personally reviewed back from 01/30/2023 demonstrating small numerous pulmonary nodules that are calcified in addition to some lymphadenopathy. No significant changes to suggest active sarcoidosis at this time. Is all reassuring although 6 months prior. The patient will try to get a sputum culture. He does have significant eosinophilia on his differential suggesting a component of eosinophilic bronchitis. I do believe then held cortical steroids will help decrease the phlegm production. Will also try to get a culture. He will try azithromycin 3 times a week to treat chronic bronchitis for the next 6- 8 weeks and see there is any improvement. Will follow-up after that. If the patient is not able to bring sputum sample or if he has not feeling any better with the therapy he will call and will consider bronchoscopy. 10/02/2023 the patient is here for a pulmonary follow-up visit. Overall he is doing better from the hemoptysis standpoint he is not coughing as much blood although sometimes he still sees blood amount in in the sputum. He did complete the antibiotics. He also switched over from the Symbicort to Arnuity. He could not take QVAR. Also having some shortness of breath with activity. Mild in severity. He does go walking in rowing on a regular basis. He does try to stay active. His oxygen level was also 95% when he came in. Therefore we went for a brief walking oximetry he was able to maintain a pulse ox of 96% although is normal slightly low. We brought up the possibility of potential endobronchial sarcoid still be in potentially active. His last CT scan still demonstrates significant lymphadenopathy and pulmonary nodules. Therefore, will go ahead and increasing inhaled steroids to see if this improvement in the irritability of the airways. If he still continues to have some blood in the sputum or if he gets worse he will call for her to undergo a bronchoscopy. Otherwise will plan for him to follow-up in January with a CT scan and PFTs. 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 Current occupational exposures/hazards: No Cognitive needs: No Hearing needs: No Vision needs: No Review of Systems Const Details: Denies fatigue, Denies fever(s) and Denies night sweats Eyes Denies change in vision and Denies itchy eyes ENT Denies change in voice Card Denies chest pain and Denies dyspnea on exertion Resp Reports chest congestion, Reports cough, Reports hemoptysis and Denies dyspnea on exertion GI Reports no additional complaints Musc Reports arthralgias Skin/Breast Denies rash Neuro Reports no additional complaints Endo Denies fatigue and Denies flushing Sheldon/Lymph Denies easy bleeding and Denies easy bruising Aller/Immun Denies itchy eyes Physical Exam Vital Signs: Last Vital Signs Pulse 65 10/02/23 08:36 Pulse Ox 95 10/02/23 08:36 Oxygen Delivery Method Room Air 10/02/23 08:36 BMI result Body Mass Index 31.9 Const General: cooperative, healthy appearing, comfortable and no acute distress Orientation/consciousness: patient oriented x3 HEENT Head: Yes normal to inspection Face and sinus: Yes normal facial exam Mouth: moist mucous membranes Neck Neck: Yes normal visual inspection, Yes full ROM and Yes trachea midline Chest Chest palpation & inspection: normal inspection of the chest Resp Effort & Inspection: normal respiratory effort Auscultation: clear to auscultation bilaterally Cardio Rate: regular rate Rhythm: regular rhythm Heart sounds: S1 normal heart sound present and S2 normal heart sound present GI Palpation (GI): Soft to palpation Auscultation: normal bowel sounds Skin General skin exam: no rashes or lesions noted Neuro General: patient oriented x3, gait normal, tone normal and moves all extremities Extrem General: Yes no clubbing, cyanosis or edema Assessment & Plan Assessment & Plan (1) Sarcoidosis: Comment: ?endobronchial sarcoid Code(s): D86.9 - Sarcoidosis, unspecified Category: Medical (2) Mediastinal lymphadenopathy: Code(s): R59.0 - Localized enlarged lymph nodes Category: Medical (3) Pulmonary nodules: Code(s): R91.8 - Other nonspecific abnormal finding of lung field Category: Medical (4) Chronic bronchitis: Code(s): J42 - Unspecified chronic bronchitis Category: Medical Qualifiers: Chronic bronchitis type: mixed simple and mucopurulent Qualified Code(s): J41.8 - Mixed simple and mucopurulent chronic bronchitis (5) Hemoptysis: Code(s): R04.2 - Hemoptysis Category: Medical Plan stop Arnuity start Flovent HFA 220mcg 2 puff BID call for Bronchoscopy if no better with the hemoptysis PFTs/CT chest in 4 months F/U 4 months Orders: Orders CT chest wo IV con 4 Months R04.2 - Hemoptysis, R91.8 - Other nonspecific abnormal finding of lung field PFT pulmonary function test 4 Months R04.2 - Hemoptysis, R91.8 - Other nonspecific abnormal finding of lung field Medications: New fluticasone propionate 220 mcg/actuation 2 puffs inhalation BID 30 days 12 grams 6RF Discontinued fluticasone furoate 200 mcg/actuation (Arnuity Ellipta) Discontinued Reason: Doctor's Order 1 inh inhalation DAILY 30 ea 11RF Coding Level of Care Code Est Pt Level 4 (79008) Complex EM visit Add On G2211 Diagnoses Sarcoidosis D86.9 Mediastinal lymphadenopathy R59.0 Pulmonary nodules R91.8 Mixed simple and mucopurulent chronic bronchitis J41.8 Chronic bronchitis type: mixed simple and mucopurulent Hemoptysis R04.2 Time Spent (min) 17
== END 2023-10-02 08:59 | disposition home or self-care (01) ==
PROVIDERS: PCP Nurse Practitioner Family; Visit Provider Hospitalist
DX: D86.9 Sarcoidosis, unspecified (principal); R59.0 Localized enlarged lymph nodes; R91.8 Other nonspecific abnormal finding of lung field; J41.8 Mixed simple and mucopurulent chronic bronchitis; R04.2 Hemoptysis
CPT/HCPCS: 99214; G2211

== ENCOUNTER → 2023-10-02 08:29 | Outpatient (BNVA) | payer MEDICARE, SELFPAY | PROVIDERS: PCP Nurse Practitioner Family; Visit Provider Hospitalist | DX: J41.8 Mixed simple and mucopurulent chronic bronchitis (principal); R91.8 Other nonspecific abnormal finding of lung field; G47.33 Obstructive sleep apnea (adult) (pediatric); D86.9 Sarcoidosis, unspecified; R59.0 Localized enlarged lymph nodes; R04.2 Hemoptysis; Z99.89 Dependence on other enabling machines and devices | CPT/HCPCS: 99212 ==

== ENCOUNTER 2023-11-11 08:03 | Outpatient (REF) | payer MEDICARE, SELFPAY ==
[2023-11-11 10:27] LABS: MANUAL DIFF FLAG NO
[2023-11-11 10:30] LABS: Basophils Percent Auto 0.8 % (0-2); Eosinophils Absolute Auto 0.3 X10*3/uL (0.0-0.4); Hemoglobin 15.7 g/dl (14.0-18.0); Imm Gran Abs Auto 0.01 X10*3/uL (0.00-0.03); Imm Gran Pct Auto 0.2 % (0.0-0.4); Lymphocytes Absolute Auto 1.9 X10*3/uL (1.2-4.9); Lymphocytes Percent Auto 38.3 % (20-40); Mean Corpuscular HGB Conc 34.1 g/dl (31.0-36.0); Mean Corpuscular Volume 90.9 fL (80.0-98.0); Mean Platelet Volume 10.3 fL (9.4-12.4); Monocytes Absolute Auto 0.5 X10*3/uL (0.1-1.2); Monocytes Percent Auto 10.5 % (2-11); Neutrophils Absolute Auto 2.2 x10*3/uL (2.0-8.3); Neutrophils Percent Auto 45.2 % (45-73); Platelet Count 165 X10*3/uL (160-400); Red Blood Count 5.06 X10*6/uL (4.60-5.80); Red Cell Distribution Width 12.3 % (11.0-16.0)
[2023-11-11 10:34] LABS: Appearance Urine Clear; Color Urine Yellow; Glucose Urine UA Negative (Negative); Leukocyte Esterase Urine Negative (Negative); Nitrite Urine Negative (Negative); PH 5.5 (5.0-9.0); Specific Gravity - Urine 1.015 (1.005-1.025); Urine Blood Negative (Negative); Urine Ketones Negative (Negative); Urine Protein Negative (Neg-Trace)
[2023-11-11 11:09] LABS: Alanine Aminotransferase 32 U/L (0-40); Albumin Level 4.1 g/dL (3.5-5.0); Alkaline Phosphatase 77 U/L (39-117); Anion Gap 12 (12-20); Aspartate Amino Transferase 30 U/L (5-37); Bilirubin Total 0.4 mg/dL (0.0-1.0); Blood Urea Nitrogen 16 mg/dL (9-16); Calcium 8.8 mg/dL (8.4-10.2); Carbon Dioxide 24 mmol/L (22-29); Chloride 107 mmol/L (96-108); Cholesterol 172 mg/dL (<200); Estimated Glomerular Filt Rate > 60; Glucose Fasting 115 mg/dL (60-99); HDL Cholesterol 32 mg/dL (>40); LDL Cholesterol Calculated 79 mg/dL (<100); Potassium 4.2 mmol/L (3.3-5.1); Sodium 139 mmol/L (135-145); TSH reflex Free T4 2.34 uIU/mL (0.32-4.0); Total Protein 7.1 g/dL (6.5-8.0); Triglycerides 305 mg/dL (<150)
== END 2023-11-11 08:04 | disposition home or self-care (01) ==
LOC: HO.HMGCLDS 08:03
PROVIDERS: PCP Nurse Practitioner Family; Visit Provider Nurse Practitioner Family
DX: R73.01 Impaired fasting glucose (principal)
CPT/HCPCS: 36415; 80053; 80061; 81003; 84443; 85025

== ENCOUNTER 2024-01-13 07:14 | Outpatient (REF) | payer MEDICARE, SELFPAY ==
[2024-01-13 09:06] LABS: Alanine Aminotransferase 64 U/L (0-40); Albumin Level 4.1 g/dL (3.5-5.0); Alkaline Phosphatase 74 U/L (39-117); Anion Gap 11 (12-20); Aspartate Amino Transferase 29 U/L (5-37); Bilirubin Total 0.4 mg/dL (0.0-1.0); Blood Urea Nitrogen 12 mg/dL (9-16); Calcium 8.8 mg/dL (8.4-10.2); Carbon Dioxide 26 mmol/L (22-29); Chloride 106 mmol/L (96-108); Cholesterol 184 mg/dL (<200); Estimated Glomerular Filt Rate 60; Glucose Fasting 131 mg/dL (60-99); HDL Cholesterol 29 mg/dL (>40); LDL Cholesterol Calculated 84 mg/dL (<100); Potassium 4.5 mmol/L (3.3-5.1); Sodium 138 mmol/L (135-145); Triglycerides 359 mg/dL (<150)
== END 2024-01-13 07:15 | disposition home or self-care (01) ==
LOC: HO.CT 07:14
PROVIDERS: Absent Provider Nurse Practitioner Family; PCP Nurse Practitioner Family; Visit Provider Hospitalist
DX: R91.8 Other nonspecific abnormal finding of lung field (principal); R04.2 Hemoptysis; E78.1 Pure hyperglyceridemia
CPT/HCPCS: 36415; 71250; 80053; 80061

== ENCOUNTER → 2024-01-13 07:16 | Outpatient (BNV) | payer MEDICARE, SELFPAY | PROVIDERS: Absent Provider Nurse Practitioner Family; PCP Nurse Practitioner Family; Visit Provider Radiology Diagnostic Radiology | DX: R91.1 Solitary pulmonary nodule (principal) | CPT/HCPCS: 71250 ==

== ENCOUNTER 2024-01-15 07:47 | Outpatient (REF) | payer MEDICARE, SELFPAY ==
--- NOTE | 2024-01-15 07:57 | PFT_ITS ---
Flows: FEV1: 101 % of predicted at 3.51 L FVC: 96 % of predicted at 4.45 L FEV1/FVC: 79 % Bronchodilator response: Absent Volumes: Total lung capacity: 83 % of predicted at 6.51 L Residual volume: 69 % of predicted at 1.95 L Slow vital capacity: 91 % of predicted at 4.55 L Expiratory reserve volume: 103 % of predicted at 1.48 L Diffusion capacity: Normal Impression: No obstructive or restrictive ventilatory defects. No bronchodilator response. Normal pulmonary function test. MTDD
[2024-01-15 11:52] VITALS: PULSE 70; O2SAT 99
== END 2024-01-15 07:48 | disposition home or self-care (01) ==
LOC: HO.RESP 07:47
PROVIDERS: PCP Nurse Practitioner Family; Visit Provider Hospitalist
DX: R91.8 Other nonspecific abnormal finding of lung field (principal); R04.2 Hemoptysis
CPT/HCPCS: 94010; 94640; 94727; 94729

== ENCOUNTER → 2024-01-15 07:57 | Outpatient (BNV) | payer MEDICARE, SELFPAY | PROVIDERS: PCP Nurse Practitioner Family; Visit Provider Internal Medicine Pulmonary Disease | DX: R91.8 Other nonspecific abnormal finding of lung field (principal); R04.2 Hemoptysis | CPT/HCPCS: 94060; 94727; 94729 ==

== ENCOUNTER → 2024-01-24 08:15 | Outpatient (BNVA) | payer MEDICARE, SELFPAY | PROVIDERS: PCP Nurse Practitioner Family ==

== ENCOUNTER 2024-02-13 09:49 | Outpatient (AMB) | payer MEDICARE, SELFPAY ==
--- NOTE | 2024-02-13 09:54 | MHC.OFFVIS ---
Vital Signs 02/13/24 09:55 Height 6 ft 1 in Weight 253 lb 8.505 oz BMI 33.4 BP 134/86 Blood Pressure Location Rt brachial Position Sitting Pulse 66 Pulse Source Pulse Oximeter Pulse Oximetry (%) 96 Oxygen Delivery Method Room Air Intake Visit Reasons: Hemoptysis Allergies No Known Allergies [No Known Allergies*] Allergy (Verified 02/13/24 09:57) HPI Comments Details: The patient is a 73-year-old gentleman with a known history of pulmonary nodules. Back in 2017 the patient was noted to have the pulmonary nodules in addition to lymphadenopathy. He did undergo a bronchoscopy demonstrating just reactive inflammatory changes. Subsequently in 2018 underwent a mediastinoscopy biopsy of the 4R lymph node. This demonstrated granulomas which were non necrotizing. fungal and AFB stains were negative. And also the cultures from previous bronchoscopy were negative for any infectious processes. This brings up the possibility of sarcoidosis. The patient subsequently had a repeat CT scan of the chest in October 2020 demonstrating multiple pulmonary nodules in addition to persistent adenopathy. From a respiratory status the patient continues to have some degree of cough. He also has shortness of breath with activity at times. He does not having any others. Patient denies any rashes denies any eye or visual changes. At this point does not appear to have any extra pulmonary manifestations of sarcoidosis. In regards of his obstructive sleep apnea the patient has been on CPAP for many years. 02/21/2022 the patient is here for a pulmonary follow-up visit. Overall the patient is doing well. He does describe episodes of coughing and chest tightness. Typically between 3 to 4 times a week. He is not using any inhalers at this time. We did review his pulmonary function studies which demonstrated just an isolated diffusion impairment. This was mild. Possibly some small airways disease but not significant. The patient also had blood work demonstrating some elevations in his eosinophils suggesting potential allergies. He also had a slight elevation of the Jose Cruz level suggesting sarcoid activity. The rest of the blood work was benign therefore no liver or kidney involvement. His calcium levels are within normal limits. He recently had his eyes checked and no mention of sarcoid was noted. The patient overall is doing well. He did have a repeat CT scan of the chest that was personally by me. It appears that the nodules and the lymphadenopathy is stable at this time. Will go ahead and start him on inhaled cortical steroid/albuterol inhaler that he can use initially as needed during his episodes. If he sees that he is using it often and he sees that he is getting good response to the therapy then he can start using it on a daily basis in the morning. He should also rinse his mouth after using it. Will follow-up in 6 months but will follow-up with a repeat CT scan in a year's time. 08/29/2022 the patient is here for pulmonary follow-up visit. Overall patient very well. He lost about 20 lb with weight management. He also stopped using Symbicort daily since he has been doing better. He can always use it as needed. The patient did have a pulmonary function study back in January 2022 which we reviewed again demonstrating on no with definitive obstructive ventilatory defects although some slight small airways disease. The patient also had a mild diffusion impairment. His last CT scan was back in December 2021 that was compared to a previous CT scan from 2018. His pulmonary nodules appear to be stable although slightly increased prominence in the lymphadenopathy. Will plan to repeat the CT scan in a year's time since he is doing so well. If he develops any worsening symptoms prior to that will any other concerning issues she can always call so we can reassess earlier. 07/19/2023 the patient is here for pulmonary follow-up visit. Overall he feels like it is getting worse. He is having more chest congestion. He is also having episodes of hemoptysis. This has been happening for the last few weeks. The usual hemoptysis she is mixed in with sputum. Typically scant amount. Typically he gets more phlegm in the morning. Then after that settles down. He has not been using the Symbicort. He did undergo a CT scan of the chest that was personally reviewed back from 01/30/2023 demonstrating small numerous pulmonary nodules that are calcified in addition to some lymphadenopathy. No significant changes to suggest active sarcoidosis at this time. Is all reassuring although 6 months prior. The patient will try to get a sputum culture. He does have significant eosinophilia on his differential suggesting a component of eosinophilic bronchitis. I do believe then held cortical steroids will help decrease the phlegm production. Will also try to get a culture. He will try azithromycin 3 times a week to treat chronic bronchitis for the next 6-8 weeks and see there is any improvement. Will follow-up after that. If the patient is not able to bring sputum sample or if he has not feeling any better with the therapy he will call and will consider bronchoscopy. 10/02/2023 the patient is here for a pulmonary follow-up visit. Overall he is doing better from the hemoptysis standpoint he is not coughing as much blood although sometimes he still sees blood amount in in the sputum. He did complete the antibiotics. He also switched over from the Symbicort to Arnuity. He could not take QVAR. Also having some shortness of breath with activity. Mild in severity. He does go walking in rowing on a regular basis. He does try to stay active. His oxygen level was also 95% when he came in. Therefore we went for a brief walking oximetry he was able to maintain a pulse ox of 96% although is normal slightly low. We brought up the possibility of potential endobronchial sarcoid still be in potentially active. His last CT scan still demonstrates significant lymphadenopathy and pulmonary nodules. Therefore, will go ahead and increasing inhaled steroids to see if this improvement in the irritability of the airways. If he still continues to have some blood in the sputum or if he gets worse he will call for her to undergo a bronchoscopy. Otherwise will plan for him to follow-up in January with a CT scan and PFTs. 02/13/2024 the patient is here for a pulmonary follow-up visit. Overall the patient has been doing well. No further hemoptysis noted. He is tolerating the Flovent well. The patient did have a CT scan of the chest which I personally reviewed with him. Appears that the lymphadenopathy is stable in the pulmonary nodules stable except for 1 nodule in the right lower lobe the increased from 4 mm to 5 mm. We did review them together and I can see the small change although not too significant but it will need additional follow-up. Pulmonary function studies were reassuring. Based on the fact that he is tolerating well the medication he will continue it and will follow-up next year with a CT scan. If he develops any worsening symptoms or if the hemoptysis reoccurs he will call for an earlier assessment. 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 Current occupational exposures/hazards: No Cognitive needs: No Hearing needs: No Vision needs: No Review of Systems Const Details: Denies fatigue, Denies fever(s) and Denies night sweats Eyes Denies change in vision and Denies itchy eyes ENT Denies change in voice Card Denies chest pain and Denies dyspnea on exertion Resp Denies chest congestion, Reports cough, Denies hemoptysis and Denies dyspnea on exertion GI Reports no additional complaints Musc Reports arthralgias Skin/Breast Denies rash Neuro Reports no additional complaints Endo Denies fatigue and Denies flushing Sheldon/Lymph Denies easy bleeding and Denies easy bruising Aller/Immun Denies itchy eyes Physical Exam Vital Signs: Last Vital Signs Pulse 66 02/13/24 09:55 BP 134/86 02/13/24 09:55 Pulse Ox 96 02/13/24 09:55 Oxygen Delivery Method Room Air 02/13/24 09:55 BMI result Body Mass Index 33.4 Const General: cooperative, healthy appearing, comfortable and no acute distress Orientation/consciousness: patient oriented x3 HEENT Head: Yes normal to inspection Face and sinus: Yes normal facial exam Mouth: moist mucous membranes Neck Neck: Yes normal visual inspection, Yes full ROM and Yes trachea midline Chest Chest palpation & inspection: normal inspection of the chest Resp Effort & Inspection: normal respiratory effort Auscultation: clear to auscultation bilaterally Cardio Rate: regular rate Rhythm: regular rhythm Heart sounds: S1 normal heart sound present and S2 normal heart sound present GI Palpation (GI): Soft to palpation Auscultation: normal bowel sounds Skin General skin exam: no rashes or lesions noted Neuro General: patient oriented x3, gait normal, tone normal and moves all extremities Extrem General: Yes no clubbing, cyanosis or edema Office Procedures Flu Questionnaire Does the patient have a severe egg allergy?: No Does the patient have severe life threatening allergies?: No Does the patient have a fever or illness today?: No Has the patient ever had Guillain-[place] Syndrome?: No Has the patient ever had any past reaction to a flu shot?: No Immunizations Fluarix Triv [id number] (PF) 45 mcg (15 mcg x 3)/0.5 mL IM syringe Performing Provider: Dylan Herrera MD Performing Location: [facility] Administered by: Sharon Gimenez LPN on 02/13/24 10:37 Dose Route Admin Location Dispensed Lot Number Expiration Date NDC Internal Controls Consultant 0.5 mL IM Right Deltoid 0.5 mL [id number] 08/10/24 [id number] [employer] VIS Given Date VIS Provided VIS Publication Date 02/13/24 Single Vaccine 20 Eligibility Eligibility Date Funding Source Not [facility] Eligible 02/13/24 Private Assessment & Plan Assessment & Plan (1) Sarcoidosis: Comment: ?endobronchial sarcoid Code(s): D86.9 - Sarcoidosis, unspecified Category: Medical (2) Mediastinal lymphadenopathy: Code(s): R59.0 - Localized enlarged lymph nodes Category: Medical (3) Pulmonary nodules: Code(s): R91.8 - Other nonspecific abnormal finding of lung field Category: Medical (4) Chronic bronchitis: Code(s): J42 - Unspecified chronic bronchitis Category: Medical Qualifiers: Chronic bronchitis type: mixed simple and mucopurulent Qualified Code(s): J41.8 - Mixed simple and mucopurulent chronic bronchitis (5) Hemoptysis: Comment: resolved Code(s): R04.2 - Hemoptysis Category: Medical Plan continue Flovent HFA 220mcg [address] chest 1 yr, RLL nodule with interval change 4->5mm F/U 12 months Orders: Orders CT chest wo IV con 1 Year R91.8 - Other nonspecific abnormal finding of lung field Influenza Immunization Today J41.8 - Mixed simple and mucopurulent chronic bronchitis Coding Level of Care Code Est Pt Level 4 (43701) Diagnoses Sarcoidosis D86.9 Mediastinal lymphadenopathy R59.0 Pulmonary nodules R91.8 Mixed simple and mucopurulent chronic bronchitis J41.8 Chronic bronchitis type: mixed simple and mucopurulent Hemoptysis R04.2 Time Spent (min) 17
[2024-02-13 09:55] VITALS: BP 134/86; PULSE 66; O2SAT 96; BMI 33.4
== END 2024-02-13 10:40 | disposition home or self-care (01) ==
PROVIDERS: PCP Nurse Practitioner Family; Visit Provider Hospitalist
DX: D86.9 Sarcoidosis, unspecified (principal); R59.0 Localized enlarged lymph nodes; R91.8 Other nonspecific abnormal finding of lung field; J41.8 Mixed simple and mucopurulent chronic bronchitis; R04.2 Hemoptysis
CPT/HCPCS: 99214

== ENCOUNTER → 2024-02-13 09:49 | Outpatient (BNVA) | payer MEDICARE, SELFPAY | PROVIDERS: PCP Nurse Practitioner Family; Visit Provider Hospitalist | DX: Z23 Encounter for immunization (principal); D86.9 Sarcoidosis, unspecified; R59.0 Localized enlarged lymph nodes; R91.8 Other nonspecific abnormal finding of lung field; R04.2 Hemoptysis; J41.8 Mixed simple and mucopurulent chronic bronchitis | CPT/HCPCS: 90471; 90656; 99212 ==

== ENCOUNTER 2024-03-18 10:28 | Outpatient (AMB) | payer MEDICARE, SELFPAY ==
[2024-03-18 10:51] VITALS: BP 142/80; PULSE 68; RESP 16; TEMP 36.9; O2SAT 98; BMI 33.4
--- NOTE | 2024-03-18 10:51 | MHC.PC.OV ---
Vital Signs 03/18/24 10:51 03/18/24 11:34 Height 6 ft 1 in Weight 253 lb BMI 33.4 BP 142/80 H 132/80 Blood Pressure Location Lt brachial Rt brachial Position Sitting Sitting Respiration 16 Pulse 68 Pulse Source Pulse Oximeter Temp 98.5 F Temp Source Oral Pulse Oximetry (%) 98 Oxygen Delivery Method Room Air Intake Visit Reasons: Annual PE Intake Note: Pt is here today for his PE Allergies No Known Allergies [No Known Allergies*] Allergy (Verified 03/18/24 10:57) Tobacco use date assessed: 03/18/24 Fall risk assessment: No Falls in past year Last assessed Fall Risk: 03/18/24 Dental Screening Dental Screen Date: 03/18/24 Did you have a dental visit in the last 12 months?: Yes Did you have a dental problem in the last 6 months where you did not have access to dental care?: No Was dental information given to patient?: Patient has dentist HPI Annual PE HPI Details History of Present Illness The patient is a 73-year-old male presenting with a recent diagnosis of diabetes mellitus. He is actively working on managing his condition through dietary changes. He reports blood glucose levels consistently around 130 mg/dL or below. The patient demonstrates understanding of hypoglycemia symptoms and corrective measures. He is adhering to wellness visits and health maintenance practices, including colorectal cancer screening, with up-to-date colonoscopy results. Newly identified issues include obesity, with consideration for lifestyle modifications, and onychomycosis observed in both toenails, characterized by discoloration and thickening of the nails. Health Maintenance - Discussion on dietary modification for diabetes management. - Plan for serum specific antigen (PSA) laboratory test. - Up-to-date colonoscopy. Social History - No social determinants of health discussed in the conversation. Review of Systems - Cardiovascular: Denies chest pain. - Respiratory: Denies shortness of breath. - Constitutional: Denies feverish chills. - Gastrointestinal: Denies nausea, vomiting, abdominal pain. - Genitourinary: Denies urinary symptoms, polyuria. - Endocrine: Denies polydipsia, neuropathy symptoms. Physical Exam General: Cooperative, healthy appearing, comfortable, no acute distress and well developed, obese Orientation: Patient oriented x3 Limitations: No limitations Head: Normal to inspection Ears: Hearing grossly normal bilaterally Nose: Normal external nose present Face and sinus: Normal facial exam Eyes: Appearance normal, both eyes and all related structures Neck: Normal visual inspection and Yes full ROM Respiratory: Normal respiratory effort and able to speak in complete sentences. Clear to auscultation bilaterally Cardiovascular: Regular rate and rhythm. Normal S1 and S2 GI: Normal to inspection. Soft to palpation and nontender Skin: No rashes or lesions noted Neuro: Patient oriented x3, positive sensation with use of monofilament to bilaterally feet Extremities: Normal to inspection, onychomycosis noted bilaterally with elongated toenails Results - Labs: Awaiting PSA test, microalbumin, and HbA1c results. Plan - Continue dietary management to control blood glucose levels for diabetes. - Obtain PSA, microalbumin, and HbA1c tests to assess prostate health and diabetes progression. - Engage in lifestyle modifications to address obesity, focusing on diet. - Address onychomycosis with appropriate antifungal treatments as necessary. Discussion Notes During our discussion, I emphasized the management of the newly diagnosed diabetes mellitus through strict dietary control and regular monitoring of blood glucose levels. The patient demonstrated understanding of hypoglycemia symptoms and corrective actions. I highlighted the importance of regular health screenings, including prostate health and continued adherence to recommended screenings to minimize complications. Future laboratory work will include PSA, microalbumin, and A1c tests to further evaluate diabetes management and prostate health. We discussed the presence of onychomycosis and potential treatment modalities. The patient declined a digital rectal exam today but agreed to ongoing monitoring through lab tests. Patient Instructions - Continue monitoring blood glucose levels and maintain them at 130 mg/dL or below. - Follow dietary recommendations aimed at better diabetes management. - Schedule and complete the recommended PSA, microalbumin, and HbA1c tests. - Monitor any changes in toenail condition and seek treatment for onychomycosis if needed. 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 1. Little interest or pleasure in doing things: not at all 2. Feeling down, depressed, or hopeless: not at all 3. Trouble falling or staying asleep, or sleeping too much: not at all 4. Feeling tired or having little energy: not at all 5. Poor appetite or overeating: not at all 6. Feeling bad about yourself - or that you are a failure or have let yourself or your family down: not at all 7. Trouble concentrating on things, such as reading the newspaper or watching television: not at all 8. Moving or speaking so slowly that other people could have noticed. Or the opposite - being so fidgety or restless that you have been moving around a lot more than usual: not at all 9. Thoughts that you would be better off or of hurting yourself in some way: not at all Total score: 0 Depression Screening Interpretation: Negative Depression Screening Done: Yes 99000 - PHQ-9 Billing: Yes Source: Developed by Drs. Toby Abdi, Rose Trevino, Wilmer Alexandre and colleagues, with an educational davide from [employer]. Thrive Questionnaire Date Thrive assessed: 03/11/24 I am a: Patient What is your living situation today?: I choose not to answer this question Within the past 12 months, did the food you bought not last and you didn't have the money to get more?: I choose not to answer this question Within the past 12 months, did you worry whether your food would run out before you got money to buy more?: I choose not to answer this question Do you have trouble paying for medicines?: No Do you have trouble getting transportation to medical appointments?: No Do you have trouble paying your heating and electricity bill?: No Do you have trouble taking care of your child, family member or friend?: No Do you have trouble with day-to-day activities such as bathing, preparing meals, shopping, managing finances, etc.?: No Are you currently unemployed and looking for a job?: No Are you interested in more education?: No Please select the resources that you would like help with: None THRIVE Score: 0 AUDIT C Alcohol Use Questionnaire (AUDIT-C) 1. How often do you have a drink containing alcohol?: Never Total Score: 0 LESLIE-7 AMB Questionnaire LESLIE-7 Date LESLIE - 7 assessed: 03/18/24 Feeling nervous, anxious, or on edge: 0 = Not at all Not being able to stop or control worryin = Not at all Worrying too much about different things: 0 = Not at all Trouble relaxin = Not at all Being so restless that it is hard to sit still: 0 = Not at all Becoming easily annoyed or irritable: 0 = Not at all Feeling afraid as if something awful might happen: 0 = Not at all Total LESLIE-7 score (0-4 normal; 5-9 mild; 10-14 moderate; 15-21 severe): 0 Source: Developed by Drs. Toby Abdi, Rose Trevino, Wilmer Alexandre and colleagues, with an educational davide from [employer]. Physical exam (Primary Care) Vital Signs: Last Vital Signs Temp 98.5 F 03/18/24 10:51 Pulse 68 03/18/24 10:51 Resp 16 03/18/24 10:51 BP 142/80 H 03/18/24 10:51 Pulse Ox 98 03/18/24 10:51 Oxygen Delivery Method Room Air 03/18/24 10:51 BMI result Body Mass Index 33.4 Tobacco/Smoking Status: Tobacco use Status Tobacco use date assessed 03/18/24 03/18/24 10:55 Patient Tobacco Use Status Never used Tobacco 03/18/24 10:53 e-Cigarette/Vaping Use Never Used 03/18/24 10:53 PHQ-9: PHQ-9 Score PHQ-9: Total score 0 03/18/24 11:31 Depression Screening Interpretation: Negative Thrive Assessment: Date of Thrive Assessment Date Thrive assessed 03/11/24 03/18/24 10:53 Coding Level of Care Code Est Pt Prev Care >65y(37805) Diagnoses Diabetes E11.9 Additional Codes PHQ-9 - 71667 - PHQ-9 Billing: Yes ([id number]) Assessment & Plan Assessment & Plan (1) Diabetes: Code(s): E11.9 - Type 2 diabetes mellitus without complications Category: Medical Plan . Orders: Orders Complete Blood Count Auto Diff Today E11.9 - Type 2 diabetes mellitus without complications Comprehensive Mchenry. Panel Fast Today E11.9 - Type 2 diabetes mellitus without complications TSH reflex Free T4 Today E11.9 - Type 2 diabetes mellitus without complications Lipid Panel Today E11.9 - Type 2 diabetes mellitus without complications UA CC w/rflx Micro + Cult Today E11.9 - Type 2 diabetes mellitus without complications Microalbumin, Random (w Creat) Today E11.9 - Type 2 diabetes mellitus without complications Hemoglobin A1c Today E11.9 - Type 2 diabetes mellitus without complications Referrals Podiatry Referral E11.9 - Type 2 diabetes mellitus without complications
[2024-03-18 11:34] VITALS: BP 132/80
== END 2024-03-18 11:45 | disposition home or self-care (01) ==
PROVIDERS: PCP Nurse Practitioner Family; Visit Provider Nurse Practitioner Family
DX: Z00.00 Encounter for general adult medical examination without abnormal findings (principal); E11.9 Type 2 diabetes mellitus without complications

== ENCOUNTER → 2024-03-18 10:28 | Outpatient (BNVA) | payer MEDICARE, SELFPAY | PROVIDERS: PCP Nurse Practitioner Family; Visit Provider Nurse Practitioner Family | DX: E11.9 Type 2 diabetes mellitus without complications (principal) | CPT/HCPCS: 96127; 99397 ==

== ENCOUNTER 2024-07-22 08:18 | Outpatient (REF) | payer MEDICARE, SELFPAY ==
--- OUTSIDE RECORDS SUMMARY | 2024-07-22 08:28 | XMS_ITS | Patient Health Record ---
Author Organization [facility] Address [address] [place] [address] Care Team Providers Care Radio Technician Name Role Phone JENNIFER SEGURA Primary Care Provider Toby Herron [phone] Reason For Referral No Information Medications Medication SIG (Take, Route, Frequency, Duration) Notes Start Date End Date Status Losartan Potassium 50 MG 1 tablet Orally Once a day Active Synthroid 125 MCG 1 tablet Orally Once a day Active Suprep Bowel Prep 1 kit as directed Oral ly as directed for 1 dose 06/07/2014 Active Problems Problem Type SNOMED Code ICD Code Onset Dates Problem Status W/U Status Risk Notes Problem Pre-surgery evaluation (012716973) Other specified pre-operative examination (V72.83) Active confirmed Problem Colon cancer screening (V76.51) Active confirmed Plan Of Treatment Future Test Test Name Order Date COLONOSCOPY 06/02/2014 Next Appt Details Provider Name:Toby Zee , 10/07/2024 02:20:00 PM, [address], [address], [place], [address], Insurance Providers Payer Name Payer Address Payer Phone Subscriber Number Group Number Insured Name Patient Relationship to Insured Coverage Start Date Coverage End Date MEDICARE OF [place] [address] [place] [address] [id number] ALEJANDRA HARRIS Self - patient is the insured [facility] [address] [place] [address] [id number] ALEJANDRA HARRIS Self - patient is the insured Medical (General) History Medical History History ICD Code Denies DE,DM,CVA,Lung disease,renal dise ase Hypertension He reports a negative screening [place] [address] Robins Hypothyroidism Surgical History Surgery Date(Month/Year) left knee replacement 2009 right knee replacement 2009 appy
[2024-07-22 10:27] LABS: MANUAL DIFF FLAG NO
[2024-07-22 10:39] LABS: Basophils Percent Auto 0.9 % (0-2); Eosinophils Absolute Auto 0.3 X10*3/uL (0.0-0.4); Eosinophils Percent Auto 5.6 % (0-4); Hematocrit 45.5 % (42.0-52.0); Hemoglobin 15.5 g/dl (14.0-18.0); Imm Gran Abs Auto 0.02 X10*3/uL (0.00-0.03); Imm Gran Pct Auto 0.4 % (0.0-0.4); Lymphocytes Absolute Auto 1.9 X10*3/uL (1.2-4.9); Lymphocytes Percent Auto 39.8 % (20-40); Mean Corpuscular HGB Conc 34.1 g/dl (31.0-36.0); Mean Corpuscular Hemoglobin 30.3 pg (27.0-33.0); Mean Corpuscular Volume 88.9 fL (80.0-98.0); Mean Platelet Volume 10.4 fL (9.4-12.4); Monocytes Absolute Auto 0.5 X10*3/uL (0.1-1.2); Monocytes Percent Auto 10.1 % (2-11); Neutrophils Percent Auto 43.2 % (45-73); Platelet Count 205 X10*3/uL (160-400); Red Blood Count 5.12 X10*6/uL (4.60-5.80); Red Cell Distribution Width 12.5 % (11.0-16.0); White Blood Count 4.7 X10*3/uL (4.8-10.8)
[2024-07-22 10:40] LABS: Estimated Average Glucose 114 mg/dL; Hemoglobin A1C 156.0548 umol/L; Hemoglobin A1c % 5.6 % (<6.0)
[2024-07-22 10:48] LABS: Appearance Urine Clear; Color Urine Yellow; Glucose Urine UA Negative (Negative); Leukocyte Esterase Urine Negative (Negative); Nitrite Urine Negative (Negative); PH 5.5 (5.0-9.0); Specific Gravity - Urine 1.015 (1.005-1.025); Urine Blood Negative (Negative); Urine Ketones Negative (Negative); Urine Protein Negative (Neg-Trace)
[2024-07-22 10:55] LABS: Alanine Aminotransferase 54 U/L (0-40); Albumin Level 4.4 g/dL (3.5-5.0); Alkaline Phosphatase 68 U/L (39-117); Anion Gap 8 (12-20); Aspartate Amino Transferase 43 U/L (5-37); Bilirubin Total 0.4 mg/dL (0.0-1.0); Blood Urea Nitrogen 19 mg/dL (9-16); Carbon Dioxide 24 mmol/L (22-29); Chloride 108 mmol/L (96-108); Cholesterol 142 mg/dL (<200); Estimated Glomerular Filt Rate > 60; Glucose Fasting 119 mg/dL (60-99); HDL Cholesterol 32 mg/dL (>40); LDL Cholesterol Calculated 84 mg/dL (<100); Potassium 4.4 mmol/L (3.3-5.1); Sodium 136 mmol/L (135-145); Triglycerides 134 mg/dL (<150)
[2024-07-22 10:58] LABS: Prostate Specific Antigen Scr 0.92 ng/mL (<0.05-4.0)
[2024-07-22 11:02] LABS: TSH reflex Free T4 1.19 uIU/mL (0.32-4.0)
[2024-07-22 11:11] LABS: Creatinine Urine 121.61 mg/dL; Microalbum/Creatinine Ratio Ur 4.1 ug/mg cr (<30)
== END 2024-07-22 08:19 | disposition home or self-care (01) ==
LOC: HO.HMGCLDS 08:18
PROVIDERS: PCP Nurse Practitioner Family; Visit Provider Nurse Practitioner Family
DX: R97.20 Elevated prostate specific antigen [PSA] (principal); E11.9 Type 2 diabetes mellitus without complications; Z12.5 Encounter for screening for malignant neoplasm of prostate
CPT/HCPCS: 36415; 80053; 80061; 81003; 82043; 82570; 83036; 84153; 84443; 85025

== ENCOUNTER 2025-01-11 14:17 | Outpatient (AMB) | payer MEDICARE, SELFPAY ==
[2025-01-11 14:37] VITALS: BP 120/80; PULSE 65; O2SAT 95; BMI 34.3
--- NOTE | 2025-01-11 14:37 | A.OFFPC_ITS ---
Vital Signs 01/11/25 14:37 Height 6 ft 1 in Weight 260 lb BMI 34.3 BP 120/80 Blood Pressure Location Lt brachial Position Sitting Pulse 65 Pulse Source Pulse Oximeter Pulse Oximetry (%) 95 Intake Visit Reasons: 6 month follow up Allergies No Known Allergies (No Known Allergies*) Allergy (Verified 01/11/25 14:37) Medication List - Last Reconciled 01/11/[address] [facility]- amlodipine 10 mg PO DAILY atorvastatin 20 mg PO BEDTIME blood sugar diagnostic (FreeStyle Lite Strips) Test blood sugar once a day blood-glucose meter (FreeStyle Lite Meter kit) Test blood sugar once a day colchicine 0.3 mg (1/2 x 0.6 mg) PO DAILY PRN fluticasone propionate 220 mcg/actuation 2 puffs inhalation BID 30 days ibuprofen 600 mg PO Q6-8H PRN lancets (FreeStyle Lancets) Test blood sugar once a day levothyroxine 137 mcg PO DAILY 90 days metoprolol succinate ER 50 mg PO DAILY Tobacco use date assessed: 03/18/24 Fall risk assessment: No Falls in past year Last assessed Fall Risk: 01/11/25 Dental Screening Dental Screen Date: 03/18/24 HPI 6 month follow up HPI Details Chief Complaint The patient presents for follow-up of diabetes and ongoing symptoms of gout in the right toe. History of Present Illness The patient is a 74 year old individual presenting for follow-up for diabetes. The patient's A1c is in the 5s, and the patient denies any neuropathies. The patient's eye exams are up to date. The patient has ongoing gout in the right first MTP joint and is currently feeling symptoms, though it is not red or swollen. The patient experiences more than three gout attacks per year. The patient also reports chest pain and shortness of breath. Social History Health Maintenance The patient is due for labs, and an order will be placed for a cholesterol panel, liver function tests, kidney function tests, and blood counts. The patient declined in-office vaccinations but will obtain a flu vaccine at a pharmacy. Review of Systems - Cardiovascular: Reports chest pain. - Respiratory: Reports shortness of akash th. - Musculoskeletal: Reports ongoing sympt oms of gout in the right first MTP joint. - Neurological: Denies neuropathies. Physical Exam General: Cooperative, healthy appearing, comfortable, no acute distress and well developed Orientation: Patient oriented x3 Limitations: No limitations Head: Normal to inspection Ears: Hearing grossly normal bilaterally Nose: Normal external nose present Face and sinus: Normal facial exam Eyes: Appearance normal, both eyes and all related structures Neck: Normal visual inspection and Yes full ROM Respiratory: Shortness of breath reported Cardiovascular: Regular rate and rhythm. Normal S1 and S2. Chest pain reported GI: Normal to inspection. Soft to palpation and nontender Skin: No rashes or lesions noted Neuro: Patient oriented x3 Extremities: Normal to inspection. Ongoing right toe gout reported, MTP joint is not currently red or swollen Results - Labs: A1c is in the 5s. Plan 1. Diabetes Mellitus The patient's diabetes is well-controlled with an A1c in the 5s. The patient denies neuropathy, and sensation is intact to monofilament testing. Will order labs including a microalbumin. The patient will arrange for an eye exam, as they are up to date. 2. Gout The patient is experiencing symptoms of an acute gout flare in the right first MTP joint. Will prescribe colchicine for the acute attack. A uric acid level will be checked. Discussed initiating preventative therapy, as the patient reports more than three attacks per year. Discussion Notes I have talked to him about his ongoing gout attacks, noting he has more than three per year. I will send a prescription for colchicine for the current flare and will check a uric acid level. We discussed possibly starting a preventative medication. We also reviewed that he is due for labs, which I will order, and he will get them done in the near future. Patient Instructions - Please go to the lab to have your bloo d drawn for the tests we discussed, which include checks on your cholesterol, liver, kidneys, blood counts, and a urine test for your diabetes. - Take the colchicine prescription as di rected for your current gout flare. - Since you have more than three gout at tacks a year, we may need to start a daily medication to prevent them. We will decide after your lab results are back. - Please get your flu shot at the [facility]. - Make sure to schedule your next eye ex am. 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 1. Little interest or pleasure in doing things: not at all 2. Feeling down, depressed, or hopeless: not at all 3. Trouble falling or staying asleep, or sleeping too much: not at all 4. Feeling tired or having little energy: not at all 5. Poor appetite or overeating: not at all 6. Feeling bad about yourself - or that you are a failure or have let yourself or your family down: not at all 7. Trouble concentrating on things, such as reading the newspaper or watching television: not at all 8. Moving or speaking so slowly that other people could have noticed. Or the opposite - being so fidgety or restless that you have been moving around a lot more than usual: not at all 9. Thoughts that you would be better off or of hurting yourself in some way: not at all Total score: 0 Depression Screening Interpretation: Negative Depression Screening Done: Yes 55339 - PHQ-9 Billing: Yes Source: Developed by Drs. Toby Abdi, Rose Trevino, Wilmer Alexandre and colleagues, with an educational davide from [employer] Thrive Questionnaire Date Thrive assessed: 03/11/24 Do you have trouble paying for medicines?: No Do you have trouble getting transportation to medical appointments?: No Do you have trouble paying your heating and electricity bill?: I choose not to answer this question Do you have trouble taking care of your child, family member or friend?: No Do you have trouble with day-to-day activities such as bathing, preparing meals, shopping, managing finances, etc.?: No Are you currently unemployed and looking for a job?: No Are you interested in more education?: No THRIVE Score: 0 AUDIT C Alcohol Use Questionnaire (AUDIT-C) 1. How often do you have a drink containing alcohol?: 2-4 times a month 2. How many drinks containing alcohol do you have on a typical day when you are drinking?: 1 or 2 3. How often do you have six or more drinks on one occasion?: Never Total Score: 2 Score Reviewed/Action Taken: Yes LESLIE-7 AMB Questionnaire LESLIE-7 Date LESLIE - 7 assessed: 03/18/24 Feeling nervous, anxious, or on edge: 0 = Not at all Not being able to stop or control worryin = Not at all Worrying too much about different things: 0 = Not at all Trouble relaxin = Not at all Being so restless that it is hard to sit still: 0 = Not at all Becoming easily annoyed or irritable: 0 = Not at all Feeling afraid as if something awful might happen: 0 = Not at all Total LESLIE-7 score (0-4 normal; 5-9 mild; 10-14 moderate; 15-21 severe): 0 Source: Developed by Drs. Toby Abdi, Rose Trevino, Wilmer Alexandre and colleagues, with an educational davide from [employer] LESLIE-7 Assessment Billing LESLIE-7 Assessment Tool: LESLIE-7 Assessment 17281 Physical exam (Primary Care) Vital Signs: Last Vital Signs Pulse 65 01/11/25 14:37 BP 120/80 01/11/25 14:37 Pulse Ox 95 01/11/25 14:37 BMI result Body Mass Index 34.3 Tobacco/Smoking Status: Tobacco use Status Tobacco use date assessed 03/18/24 01/11/25 14:38 Patient Tobacco Use Status Never used Tobacco 01/11/25 14:38 e-Cigarette/Vaping Use Never Used 01/11/25 14:38 PHQ-9: PHQ-9 Score PHQ-9: Total score 0 01/11/25 14:38 Depression Screening Interpretation: Negative Thrive Assessment: Date of Thrive Assessment Date Thrive assessed 03/11/24 01/11/25 14:38 Results AMB Hemoglobin A1c AMB Hemoglobin A1c 5.3 % Last Edit by Jayden Pompa CMA on 01/11/25 14: 58 Results Reviewed Results Reviewed: Laboratory Last Values Hgb A1c (Clinic) 5.3 % (4.0-6.0) 01/11/25 14:57 Coding Level of Care Code Est Pt Level 3 (13079) Diagnoses Diabetes E11.9 Gout M10.9 Additional Codes LESLIE-7 Assessment Billing - LESLIE-7 Assessment Tool: LESLIE-7 Assessment 72135 ([id number]) PHQ-9 - 18900 - PHQ-9 Billing: Yes ([id number]) Assessment & Plan Assessment & Plan (1) Diabetes: Code(s): E11.9 - Type 2 diabetes mellitus without complications Category: Medical (2) Gout: Code(s): M10.9 - Gout, unspecified Category: Medical Plan . Orders: Orders Uric Acid Today M10.9 - Gout, unspecified AMB Hemoglobin A1c Today Z13.9 - Encounter for screening, unspecified XR foot RT 2V Today M10.9 - Gout, unspecified Referrals Ophthalmology Referral E11.9 - Type 2 diabetes mellitus without complications Medications: Refilled colchicine 2 tabs with onset of gout attack, then 1 tab after 1 hr of taking first 2 tabs. 0.3 mg (1/2 x 0.6 mg) PO DAILY PRN 20 tabs 2RF gout attack
== END 2025-01-11 16:44 | disposition home or self-care (01) ==
LOC: HO.HMCC 14:18
PROVIDERS: PCP Nurse Practitioner Family; Visit Provider Nurse Practitioner Family
DX: E11.9 Type 2 diabetes mellitus without complications (principal); M10.9 Gout, unspecified; Z13.9 Encounter for screening, unspecified

== ENCOUNTER → 2025-01-11 14:17 | Outpatient (BNVA) | payer MEDICARE, SELFPAY | PROVIDERS: PCP Nurse Practitioner Family; Visit Provider Nurse Practitioner Family | DX: E11.9 Type 2 diabetes mellitus without complications (principal); M10.9 Gout, unspecified | CPT/HCPCS: 83036; 96127; 99212 ==

== ENCOUNTER 2025-01-13 06:09 | Day surgery (SDC) | payer MEDICARE, SELFPAY ==
--- OUTSIDE RECORDS SUMMARY | 2024-12-23 17:05 | XMS_ITS | Patient Health Record ---
Author Organization [facility] Delia Cejaley Address [address] [address] Care Team Providers Care Software Asset Management Analyst Name Role Phone Amadou Damon Primary Care Provider Unav ailable Christina Marquis Unavailable [phone] Allergies No Known Allergies Reason For Referral Diagnosis 1 Pain in unspecified foot (M79.673) Referring Provider First Name Amadou Referring Provider Last Name Radhika Referred Organization [facility] Referred Provider Christina Marquis Referred Address [address] ,[place], [place],[address], Referred Provider Specialty Podiatry Referral Priority Routine Medications Medication SIG (Take, Route, Frequency, Duration) Notes Start Date End Date Status Levothyroxine Sodium 137 MCG 1 tablet in the morning on an empty stomach Orally Once a day Active amLODIPine Besylate 10 MG 1 tablet Orall y Once a day Active Metoprolol Succinate 50 MG 1 capsule Ora lly Once a day Active Social History Tobacco Use: Social History Observation Description Date Details (start date - stop date) Never Smoker NA - NA Tobacco use other than smoking: Question Answer Notes Are you an other tobacco user? No Tobacco Control (Standard) Question Answer Notes Tobacco use: Nonsmoker Additional Findings: Tobacco non-user Current no nsmoker AUDIT-C (Standard) Question Answer Notes Did you have a drink contain ing alcohol in the past year? Yes How often did you have a dri nk containing alcohol in the past year? Daily or almost daily (4 points) How many drinks did you have on a typical day when you were drinking in the past year? Declined to specify (0 point) How often did you have six o r more drinks on one occasion in the past year? Declined to specify (0 point) Points 4 Interpretation Positive Vital Signs Blood pressure diastolic 60 mm Hg 08/03/2024 Height 6ft in 08/03/2024 Blood pressure systolic 130 mm Hg 08/03/2024 Weight 245 lbs 08/03/2024 BMI 33.22 kg/m2 08/03/2024 Encounters Encounter Location Date Provider Diagnosis [facility] [address] 08/03/2024 Christina Marquis Pain in right toe(s) M79.674 ; Onychomycosis B35.1 and Pain in left toe(s) M79.675 [facility] [address] 07/28/2024 Christina Marquis Assessments Encounter Date Diagnosis (ICD Code) Assessment Notes Treatment Notes Treatment Clinical Notes Section Notes 08/03/2024 Pain in right toe(s) (ICD-10 - M79.674) 08/03/2024 Onychomycosis (ICD-10 - B35.1) 08/03/2024 Pain in left toe(s) (ICD-10 - M79.675) Plan Of Treatment No Information Insurance Providers Payer Name Payer Address Payer Phone Subscriber Number Group Number Insured Name Patient Relationship to Insured Coverage Start Date Coverage End Date [facility] [address] [place] [address] [phone] [id number] Frandy Chambers Self - patient is the insured Medical (General) History Medical History History ICD Code Cataracts Gout High Blood Pressure thyroid Measles Mumps Chicken pox Bone implants/screws
--- OUTSIDE RECORDS SUMMARY | 2024-12-23 17:05 | XMS_ITS | Patient Health Record ---
Author Organization [facility] Address [address] [place] [address] Care Team Providers Care Heat Treat Operator Name Role Phone JENNIFER GARRIDO Primary Care Provider Toby Herron Unavailable [phone] Allergies No Known Allergies Reason For Referral Referring Provider First Name JENNIFER Referring Provider Last Name IMELDA Referred Organization [facility] Referred Provider Toby Zee Referred Address [address],[place], [place],[address],[place] Referred Provider Specialty Gastroentero logy General Notes Karen Parra 2024 04:26:40 PM >requested hmo blue referral on Jennifer Garrido's answering machine for office visit with Dr. Zee on 10-07-24 Referral Priority Routine Medications Medication SIG (Take, Route, Frequency, Duration) Notes Start Date End Date Status Synthroid 125 MCG 1 tablet Orally Once a day Active Losartan Potassium 50 MG 1 tablet Orally Once a day Active Immunizations Vaccine Route Administration Date Status Comme nts Influenza Unknown 10/29/2023 Administered Problems Problem Type SNOMED Code ICD Code Onset Dates Problem Status W/U Status Risk Notes Problem Pre-surgery evaluation (436029963) Other specified pre-operative examination (V72.83) Active confirmed Problem Colon cancer screening (861222648) Colon cancer screening (V76.51) Active confirmed Problem Colon cancer screening (903440268) Colon cancer screening (Z12.11) Active confirmed Problem Preprocedural examination (601851937816403) Preprocedural examination (Z01.818) Active confirmed Vital Signs Temperature 97.5 degrees Fahrenheit 10/07/2024 Blood pressure diastolic 01 mm Hg 10/07/2024 Height 72.5 in 10/07/2024 Blood pressure systolic 001 mm Hg 10/07/2024 Weight 256 lbs 10/07/2024 BMI 34.24 kg/m2 10/07/2024 Procedures Procedure Date Ordered Date Performed Result Body Sit e COLONOSCOPY 10/07/2024 N/A Encounters Encounter Location Date Provider Diagnosis [facility] [address] [place] [address] 10/07/2024 Toby Zee Colon cancer screeni ng Z12.11 and Preprocedural examination Z01.818 [facility] [address] [place] [address] 09/01/2024 Toby Zee Assessments Encounter Date Diagnosis (ICD Code) Assessment Notes Treatment Notes Treatment Clinical Notes Section Notes 10/07/2024 Colon cancer screening (ICD-10 - Z12.11) Overall, Chase appears quite well. Given his age, good clinical appearance, and last colonoscopy being over 10 years ago, I did recommend a follow-up colonoscopy for further screening purposes. We did review the rationale for this in regard to colon cancer prevention. Full consent has been obtained for this, including risks of bleeding and perforation. The procedure will be done with monitored anesthesia care. Chase was comfortable with this plan. Thank you again for allowing me to participate in Chase's care. I shall continue to keep you advised of his progress.. 10/07/2024 Preprocedural examination (ICD-10 - Z01.818) Overall, Chase appears quite well. Given his age, good clinical appearance, and last colonoscopy being over 10 years ago, I did recommend a follow-up colonoscopy for further screening purposes. We did review the rationale for this in regard to colon cancer prevention. Full consent has been obtained for this, including risks of bleeding and perforation. The procedure will be done with monitored anesthesia care. Chase was comfortable with this plan. Thank you again for allowing me to participate in Chase's care. I shall continue to keep you advised of his progress.. Plan Of Treatment Pending Test Test Name Order Date COLONOSCOPY 10/07/2024 Future Test Test Name Order Date COLONOSCOPY 06/02/2014 Next Appt Details Provider Name:Toby Silva Zee , 01/13/2025 07:30:00 AM, [address] [place] [address] , [place], [place], [id number], Insurance Providers Payer Name Payer Address Payer Phone Subscriber Number Group Number Insured Name Patient Relationship to Insured Coverage Start Date Coverage End Date [facility] [address] [place] [address] [id number] ALEJANDRA HARRIS Self - patient is the insured Medical (General) History Medical History History ICD Code Denies NC,DM,CVA,Lung disease,renal dise ase Hypertension He reports a negative screening [place] [address] Robins Hypothyroidism Negative screening colonoscopy in 2014 Surgical History Surgery Date(Month/Year) Right hand Dupuytrenne's and carpal tunn el appy right knee replacement 2009 left knee replacement 2009
--- NOTE | 2025-01-11 10:02 | P.CONAN_ITS ---
Documented by User: Samanta Flores NP 01/11/25 10:03 HPI - Anesthesia Eval Consult details Narrative: 74yo M for Colonoscopy Sarcoid - follows [facility] pulmo - stable at yearly office visit 02/2024 COUNTS INCLUDE 234 BEDS AT [facility] Active Problems Active Problems: All Active Problems Diabetes (Acute) Fatty liver (Acute) High triglycerides (Acute) Pulmonary nodules (Acute) HTN (hypertension) (Acute) Encounter for routine adult physical exam with abnormal findings (Acute) Hemoptysis (Acute) Chronic bronchitis (Acute) Vitamin D deficiency (Acute) Cubital tunnel syndrome on right (Acute) Carpal tunnel syndrome of right wrist (Acute) Numbness and tingling in right hand (Acute) Dupuytren's contracture of right hand (Acute) Adult hypothyroidism (Acute) Family history of heart disease (Acute) Chest discomfort (Acute) Dupuytren contracture (Acute) Increased liver enzymes (Acute) Mediastinal lymphadenopathy (Acute) Elevated PSA (Acute) Elevated fasting blood sugar (Acute) Increased prostate specific antigen (PSA) velocity (Acute) Screening PSA (prostate specific antigen) (Acute) Physical exam (Acute) Sarcoidosis (Acute) Past Medical History Medical History Pulmonary nodules HTN (hypertension) Hemoptysis Chronic bronchitis Hypothyroid Sarcoidosis Family History Family History Father Mental health disorder Family history of problems with anesthesia: No Surgical History Surgical History Hx of nasal septoplasty Hx of total knee replacement H/O colonoscopy History of bronchoscopy History of surgery History of Problems with Anesthesia: No Social History Social History Housing: House Patient Tobacco Use Status: Never used Tobacco e-Cigarette/Vaping Use: Never Used Second Hand Smoke Exposure: No Use of substances other than those prescribed or required for medical reasons: No Have you been hit, kicked, punched, or otherwise hurt by someone within the past year? 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 Current occupational exposures/hazards: No Cognitive needs: No Hearing needs: No Vision needs: No Meds Allergies Allergy/AdvReac Type Severity Reaction Status Date / Time No Known Allergies (No Known Allergy Verified 01/13/25 06:35 Allergies*) Exam Pertinent Lab Results Pertinent Lab Results: Laboratory Tests 07/22/24 08:23 WBC 4.7 L Hgb 15.5 Hct 45.5 Plt Count 205 Sodium 136 Potassium 4.4 Chloride 108 Carbon Dioxide 24 BUN 19 H Creatinine 1.16 Assessment and Plan Assessment Anesthesia Assessment: Chart Reviewed Final Anesthetic Review Family History of Problems with Anesthesia: No History of Problems with Anesthesia: No Documented by User: Stephen Vogt MD 01/13/25 07:18 PMFSH Past Medical History Medical History Pulmonary nodules HTN (hypertension) Hemoptysis Chronic bronchitis Hypothyroid Sarcoidosis Functional capacity: independent ambulation Family History Family History Father Mental health disorder Surgical History Surgical History Hx of nasal septoplasty Hx of total knee replacement H/O colonoscopy History of bronchoscopy History of surgery Social History Social History Housing: House Patient Tobacco Use Status: Never used Tobacco e-Cigarette/Vaping Use: Never Used Second Hand Smoke Exposure: No Use of substances other than those prescribed or required for medical reasons: No Have you been hit, kicked, punched, or otherwise hurt by someone within the past year? 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 Current occupational exposures/hazards: No Cognitive needs: No Hearing needs: No Vision needs: No Meds Allergies Allergy/AdvReac Type Severity Reaction Status Date / Time No Known Allergies (No Known Allergy Verified 01/13/25 06:35 Allergies*) Exam Exam Date and Time: 01/13/2025 Airway TM Dist: >3cm Loose/Missing/Broken Teeth: No Heart: normal Lungs: normal Other: normal Assessment and Plan Final Anesthetic Review NPO: Yes ASA Class: II Final Preanesthetic Review: No Changes in Pt Med Stat, Meds/Allgs Chart Reviewed, Consent Obtained/Reviewed and Anes Risks/Benef Reviewed Patient Risk: Low Procedure Risk: Low Anesthetic Plan Anesthetic Plan: MAC: Disposition: Standard PACU
[2025-01-11 10:50] VITALS: BMI 34.2
[2025-01-13 06:32] VITALS: BMI 34.0
[2025-01-13 06:40] VITALS: BMI 34.0
[2025-01-13 06:41] VITALS: BP 168/87; PULSE 66; RESP 16; TEMP 36.4; O2SAT 97
[2025-01-13] MEDS: Lactated Ringers 1,000 ML 100 ML IVCONT (06:46)
[2025-01-13 08:57] VITALS: BP 123/69; PULSE 61; RESP 11; TEMP 36.2; O2SAT 93
--- NOTE | 2025-01-13 09:01 | P.BOP_ITS ---
Brief Operative Note Date of Service: 01/13/25 Pre-op diagnosis: Screening Post-op diagnosis: other (Colon polyps) Procedure: Colonoscopy to the cecum and TI with hot snare polypectomy x 3 Surgeon: Toby Zee MD Anesthesia: MAC Was an Weights And Measures Sealer used for this Procedure?: No Estimated blood loss (mL): 0 Pathology: other (A. Ascending colon polyp B. Polyp at 60cm) Condition: stable Disposition: PACU
[2025-01-13 09:12] VITALS: BP 121/80; PULSE 56; RESP 20; TEMP 36.5; O2SAT 97
--- NOTE | 2025-01-13 09:22 | OP_ITS ---
DATE OF SERVICE: 01/13/2025 SURGEON: Toby Zee MD INDICATIONS: The patient presents for evaluation of colorectal cancer screening. Full consent has been obtained from him for this, including risks of bleeding and perforation. PREOPERATIVE DIAGNOSIS: Colorectal cancer screening. POSTOPERATIVE DIAGNOSIS: PROCEDURE PERFORMED: Colonoscopy to cecum and terminal ileum with hot snare polypectomy x3. ESTIMATED BLOOD LOSS: COMPLICATIONS: ANESTHESIA: Medication used, monitored anesthesia care. ASSISTANTS: SPECIMENS: POSTOPERATIVE DIAGNOSES: Colorectal cancer screening, colon polyps, colon diverticulosis, and internal hemorrhoids. DESCRIPTION OF PROCEDURE: The patient was placed in the left lateral decubitus position. The digital rectal exam revealed no abnormalities. The Olympus video pediatric colonoscope was entered into the rectum and advanced easily to the cecum. Once in the cecum, I did identify normal-appearing cecal pouch with appendiceal orifice and a normal-appearing ileocecal valve. The terminal ileum was cannulated and appeared normal. The scope was withdrawn back in the colon. The entire cecum and ileocecal valve appeared normal. The scope was slowly withdrawn assessing all mucosal surfaces carefully. Preparation was excellent. In the area of the distal ascending colon, there was a flat, but raised approximately 10-12 mm possible serrated polyp, which was removed by hot snare polypectomy completely and recovered by suction. The polypectomy site appeared clean, without any sign of residual polyp nor bleeding. At 60 cm, there was an approximately 10-12 mm flat, but raised polyp removed by hot snare polypectomy, recovered by suction. The polypectomy site appeared clean, without any sign of residual polyp nor bleeding. At 50 cm, there was an approximately 5 mm polyp, which was removed by hot snare polypectomy, but not recovered. The polypectomy site appeared clean, without any sign of residual polyp nor bleeding. I did not visualize any other polyps, colitis, nor angiodysplasia. There was a mild amount of sigmoid diverticulosis. Once in the rectum, the scope was retroflexed visualizing internal hemorrhoids, but no other pathology. The rectal mucosa appeared normal. Scope was straightened and withdrawn from the patient. He tolerated the procedure well and was returned to recovery area in stable condition. IMPRESSION: 1. Colon polyps. 2. Diverticulosis. 3. Internal hemorrhoids. PLAN: Results of the pathology will be checked. If either of the polyps are adenomas and/or serrated polyps, I would recommend a repeat colonoscopy in 5 years. He was advised not to use any aspirin or NSAIDs for 1 week. He will otherwise see me as needed. This has been discussed with his . MD CARLO Fairbanks/SIN / [id number]
== END 2025-01-13 09:26 | disposition home or self-care (01) ==
PROVIDERS: PCP Nurse Practitioner Family; Visit Provider Internal Medicine
PROC: 0DJD8ZZ Inspection of Lower Intestinal Tract, Via Natural or Artificial Opening Endoscopic (ICD-10-PCS; CPT 45378; principal; 2025-01-13 07:30)
DX: Z12.11 Encounter for screening for malignant neoplasm of colon (principal); K57.30 Diverticulosis of large intestine without perforation or abscess without bleeding; K64.8 Other hemorrhoids; D12.2 Benign neoplasm of ascending colon; D12.5 Benign neoplasm of sigmoid colon
CPT/HCPCS: 45385; 88305; J2003; J2704; J3010

== ENCOUNTER 2025-02-08 06:52 | Outpatient (REF) | payer MEDICARE, SELFPAY ==
--- OUTSIDE RECORDS SUMMARY | 2025-01-13 02:30 | XMS_ITS ---
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 Role Phone JENNIFER SEGURA Primary Care Provider Toby Herron [phone] REASON FOR VISIT screening Encounters Encounter Location Date Provider Diagnosis [facility] [place] [address] [place], [place] [id number] 01/13/2025 Toby Zee Plan Of Treatment No Information Progress Notes * ALEJANDRA HARRISDOB:1950 (74 yo M)Acc No.[id number]:01/13/2025 COLON WITH MAC Patient: ALEJANDRA BROWN Provider: Reyna Zee MD :1950 A ge:74 Y S ex:Male Date:01/13/2025 Address:[address] [place] [address] [id number] Pcp:JENNIFER SEGURA Subjective: * Chief Complaints: * S creening Billing Information: * Procedure Codes: * The named appointment provid er may or may not be the originator of this progress note, and it is not deemed complete until electronically signed by the appointment provider. Sign off status: Pending * Provider: Reyna Zee MD Date: 03/16/2024 Generated for Usha duval/Angely/eTransmitting on: 06:55 AM EST
--- NOTE | ~2025-02-08 | CT_ITS ---
EXAMINATION: CT CHEST WITHOUT IV CONTRAST INDICATION: R91.8 - Other nonspecific abnormal finding of lung field COMPARISON: Comparison is made with the prior examination dated 01/13/2024. TECHNIQUE: Helical CT scan of the chest was performed without intravenous contrast. Coronal and sagittal reformatted images were generated and reviewed. This CT exam was performed with one or more of the following dose reduction techniques: automated exposure control, adjustment of the mA and/or kV according to patient size, use of iterative reconstruction technique. DLP: 53 mGy-cm CHEST: THYROID: The thyroid is unremarkable. LUNGS: Again seen are multiple calcified and noncalcified nodules in both lungs. There is a 5 mm noncalcified nodule in the right lower lobe (series 6, image 74) without significant change. There are numerous nodules along the major fissures consistent with intrapulmonary lymph nodes. MEDIASTINUM: Again seen is a paratracheal lymph node measuring up to 1.4 cm. Multiple additional mediastinal and subcarinal lymph nodes are identified which are more notable for number than size. JUNIOR: Evaluation of the hilar regions is limited by lack of intravenous contrast material. CARDIOVASCULATURE: The heart is normal in size. There is no pericardial effusion. The thoracic aorta is normal in caliber. DEGREE OF CORONARY CALCIFICATION: mild PLEURA: There is no pleural effusion. No pneumothorax. MAIN AIRWAYS: The mainstem bronchi and proximal branches are patent. AXILLA: There is no axillary lymphadenopathy. BONES AND SOFT TISSUES: Unremarkable UPPER ABDOMEN: The visualized portions of the liver, spleen, and adrenals have an unremarkable unenhanced appearance. CT/CT chest wo IV con IMPRESSION: 1. Stable subcentimeter calcified and noncalcified bilateral pulmonary nodules. 2. Stable mediastinal lymph nodes, more notable for number than size. Electronically signed by: Toby Ovalles MD 02/08/2025 08:10 AM [facility]
--- NOTE | ~2025-02-08 | XR_ITS ---
EXAMINATION: XR FOOT 3 OR MORE VIEWS RIGHT HISTORY: M10.9 - Gout, unspecified COMPARISON: There are no prior studies available for comparison. FINDINGS: Three views of the right foot are submitted. Osseous mineralization is normal. There is no fracture or dislocation. There is moderate degenerative change of the 1st tarsometatarsal joint and mild degenerative change of the PIP and DIP joints. No erosions are seen. There is a small plantar calcaneal spur. There are calcifications of the plantar fascia and Achilles tendon. XR/XR foot RT min 3V IMPRESSION: Degenerative changes of the right foot as described. Electronically signed by: Toby Ovalles MD 02/08/2025 07:57 AM [facility]
--- OUTSIDE RECORDS SUMMARY | 2025-02-08 06:56 | XMS_ITS | Patient Health Record ---
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 Phone Amadou Damon Primary Care Provider Unav ailable Christina Marquis Unavailable [phone] Allergies No Known Allergies Reason For Referral Diagnosis 1 Pain in unspecified foot (M79.673) Referring Provider First Name Amadou Referring Provider Last Name Radhika Referred Organization [facility] Referred Provider Christina Marquis Referred Address [address] ,[place], [place],[address], Referred Provider Specialty Podiatry Referral Priority Routine [...] 08/03/2024 Encounters Encounter Location Date Provider Diagnosis [facility] [address] 08/03/2024 Christina Marquis Pain in right toe(s) M79.674 ; Onychomycosis B35.1 and Pain in left toe(s) M79.[address] [facility] [address] 07/28/2024 Christina Marquis Assessments Encounter Date Diagnosis [...] Insured Coverage Start Date Coverage End Date [employer] [address] [place] [address] [id number] Frandy Chambers Self - patient is the insured Medical (General) History Medical History History ICD Code Cataracts Gout High Blood Pressure thyroid Measles Mumps Chicken pox Bone implants/screws
--- OUTSIDE RECORDS SUMMARY | 2025-02-08 06:56 | XMS_ITS | Patient Health Record ---
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 Name Role Phone JENNIFER GARRIDO Primary Care Provider Toby Herron Unavailable [phone] Allergies No Known Allergies Results Component Value Reference Range Notes Pathology (Not yet reviewed by provider) Interpretation: Performing Lab:[facility], [address] [place] [phone] Notes/Report: Reason For Referral Referring Provider First Name JENNIFER Referring Provider Last Name IMELDA Referred Organization [facility] Referred Provider Toby Zee Referred Address [address] [place] [address],[facility],[place],[address], Referred Provider Specialty Gastroentero logy General Notes Karen Parra 2024 04:26:40 PM >requested o blue referral on Jennifer Garrido's answering machine for office visit with Dr. 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 Section Notes: Nonsmoker; 1 glass of red wi ne QD Nonsmoker; 1 glass of red wi ne QD Problems Problem Type SNOMED Code ICD Code Onset Dates Problem Status W/U Status Risk Notes Problem Pre-surgery evaluation (831895803) Other specified pre-operative examination (V72.83) Active confirmed Problem Colon cancer screening (189255923) Colon cancer screening (V76.51) Active confirmed Problem Colon cancer screening (339704991) Colon cancer screening (Z12.11) Active confirmed Problem Preprocedural examination (473639196212578) Preprocedural examination (Z01.818) Active confirmed Vital Signs Temperature 97.5 degrees Fahrenheit 10/07/2024 Blood pressure diastolic 01 mm Hg 10/07/2024 Height 72.5 in 10/07/2024 Blood pressure systolic 001 mm Hg 10/07/2024 Weight 256 lbs 10/07/2024 BMI 34.24 kg/m2 10/07/2024 Procedures Procedure Date Ordered Date Performed Result Body Sit e COLONOSCOPY 10/07/2024 N/A Encounters Encounter Location Date Provider Diagnosis [facility] [place] Out[place] [address] [place] [phone] 01/13/2025 Toby Zee [facility] [address] [place] [phone] 10/07/2024 Toby Zee Colon cancer screeni ng Z12.11 and Preprocedural examination Z01.818 [facility] [address] [place] [phone] 09/01/2024 Toby Zee Assessments Encounter Date Diagnosis [...] Test Test Name Order Date COLONOSCOPY 10/07/2024 Pathology 01/13/2025 Future Test Test Name Order Date COLONOSCOPY 06/02/2014 Insurance Providers Payer Name Payer Address Payer Phone Subscriber Number Group Number Insured Name Patient Relationship to Insured Coverage Start Date Coverage End Date [facility] BCBS PROFESSIONAL CLAIMS [address] [place] [address] [id number] ARIELSTONEALEJANDRA Self - patient is the insured Medical (General) History Medical History History ICD Code Denies SD,DM,CVA,Lung disease,renal dise ase Hypertension He reports a negative screening colonosc [place] [address] Robins Hypothyroidism Negative screening colonoscopy in 2014 Surgical History Surgery Date(Month/Year) left knee replacement 2009 right knee replacement 2009 appy Right hand Dupuytrenne's and carpal tunn el
[2025-02-08 07:03] LABS: MANUAL DIFF FLAG NO
[2025-02-08 07:17] LABS: Hematocrit 47.3 % (42.0-52.0); Hemoglobin 15.9 g/dl (14.0-18.0); Imm Gran Abs Auto 0.01 X10*3/uL (0.00-0.03); Imm Gran Pct Auto 0.2 % (0.0-0.4); Lymphocytes Absolute Auto 2.0 X10*3/uL (1.2-4.9); Mean Corpuscular HGB Conc 33.6 g/dl (31.0-36.0); Mean Corpuscular Hemoglobin 30.1 pg (27.0-33.0); Mean Corpuscular Volume 89.6 fL (80.0-98.0); NRBC Abs Auto 0.000 X10*3/uL (0.0-0.012); NRBC Pct Auto 0.0 /100WBC (0.0-0.2); Platelet Count 160 X10*3/uL (160-400); Red Blood Count 5.28 X10*6/uL (4.60-5.80); White Blood Count 4.9 X10*3/uL (4.8-10.8)
[2025-02-08 07:46] LABS: Alanine Aminotransferase 35 U/L (0-40); Albumin Level 4.3 g/dL (3.5-5.0); Alkaline Phosphatase 79 U/L (39-117); Anion Gap 12 (12-20); Aspartate Amino Transferase 29 U/L (5-37); Blood Urea Nitrogen 19 mg/dL (9-16); Calcium 8.6 mg/dL (8.4-10.2); Carbon Dioxide 24 mmol/L (22-29); Chloride 108 mmol/L (96-108); Cholesterol 121 mg/dL (<200); Estimated Glomerular Filt Rate > 60; HDL Cholesterol 32 mg/dL (>40); Potassium 4.4 mmol/L (3.3-5.1); Sodium 140 mmol/L (135-145); Total Protein 7.1 g/dL (6.5-8.0); Triglycerides 239 mg/dL (<150); Uric Acid 8.5 mg/dL (3.4-7.0)
[2025-02-08 07:49] LABS: Appearance Urine Clear; Glucose Urine UA Negative (Negative); PH 6.5 (5.0-9.0); Specific Gravity - Urine 1.020 (1.005-1.025)
[2025-02-08 07:52] LABS: Microalbum/Creatinine Ratio Ur 7.4 ug/mg cr (<30)
[2025-02-08 08:30] LABS: Free T4 (Free Thyroxine) 0.84 ng/dL (0.71-1.85)
== END 2025-02-08 06:53 ==
LOC: HO.CT 06:52
PROVIDERS: Absent Provider Nurse Practitioner Family; PCP Nurse Practitioner Family; Visit Provider Hospitalist
DX: E11.9 Type 2 diabetes mellitus without complications (principal); R91.8 Other nonspecific abnormal finding of lung field; E55.9 Vitamin D deficiency, unspecified; M10.9 Gout, unspecified
CPT/HCPCS: 36415; 71250; 73630; 80053; 80061; 81003; 82043; 82306; 82570; 84439; 84443; 84550; 85025

== ENCOUNTER → 2025-02-08 07:06 | Outpatient (BNV) | payer MEDICARE, SELFPAY | PROVIDERS: Absent Provider Nurse Practitioner Family; PCP Nurse Practitioner Family; Visit Provider Radiology Diagnostic Radiology | DX: R91.8 Other nonspecific abnormal finding of lung field (principal); R59.0 Localized enlarged lymph nodes; M19.071 Primary osteoarthritis, right ankle and foot | CPT/HCPCS: 71250; 73630 ==